=== PATIENT | female | born 1960 | race Caucasian/White ===

== ENCOUNTER 2021-01-19 13:35 | Outpatient (CLI) | payer MEDICARE, SELFPAY ==
--- NOTE | 2021-01-19 13:41 | MR_ITS ---
WS: [id number] MRI RIGHT HIP without CONTRAST. COMPARISON: None Multiplanar, multisequence imaging is performed without contrast. No fractures or marrow edema. Mild narrowing of the hip joints bilaterally. No osteochondral lesions are identified. No joint effusion or synovitis. Soft tissues are symmetric bilaterally. There is a small amount of free fluid in the pelvis. There is also a catheter coiled in the pelvis. T he free fluid is secondary to peritoneal dialysis. MR/MR hip RT wo con* [id number] IMPRESSION: 1. Mild narrowing of the hips. No osteonecrosis or fractures. 2. No joint effusions. 3. Free fluid in the pelvis is probably due to peritoneal dialysis. There is a catheter noted coiled in the pelvis on this examination.
--- NOTE | 2021-01-19 13:42 | MR_ITS ---
WS: [id number] MRI LUMBAR SPINE NONCONTRAST HISTORY: LOW BACK PAIN COMPARISON: 04/28/2010 TECHNIQUE: Sagittal and axial multisequence imaging is submitted. Postsurgical changes in the cervical spine. Mild thoracolumbar scoliosis with moderate spondylosis in the thoracic spine. Mild RIGHT curvature lumbar spine. Posterior fusion hardware extends from L3 to L5. There is moderate disc space narrowing at L3-4 and L4-5. No fracture or acute marrow edema. Benign hemangioma at L1. Stable L4 anterolisthesis by 4 mm. Conus terminates normally at L1. L1-L2: Diffuse asymmetric disc bulging. LEFT paracentral disc protrusion and/or osteophyte encroachin g upon the thecal sac. Mild LEFT subarticular recess narrowing. Similar protrusion on the prior study . . L2-L3: Diffuse annular disc bulging. Marked disc space narrowing and osteophytosis and facet arthriti s. Ligamentum flavum arthritis contributing to moderate central, bilateral subarticular recess and mi ld foraminal stenosis. Overall progression of stenosis since the prior study L3-L4: Diffuse annular disc bulging and osteophytic ridging. Posterior laminectomy defects with at le ast mild foraminal narrowing. L4-L5: Diffuse asymmetric disc bulging greatest to the LEFT. Bilateral laminectomy defects. Mild bila teral foraminal stenosis, LEFT greater than RIGHT. Increased soft tissue in the LEFT foramen could be scar tissue from the prior surgery. Cannot confirm without IV contrast. L5-S1: Mild annular disc bulging without significant stenosis. Liver is elongated which is probably a Maximus's lobe. There is a mass associated the superior LEFT ki dney measuring 2.7 cm. This mass is incompletely visualized. Moderate amount of free fluid in the pel vis needs to be further evaluated. MR/MR lumbar spine wo con* [id number] IMPRESSION: 1. Status post posterior lumbar fusion from L3 to L5. 2. Large posterior laminectomy defects at the L3-4 and L4-5 levels. 3. Development of moderate central, bilateral subarticular recess and mild nadege ateral foraminal stenosis at L2-3. 4. Mild LEFT subarticular recess narrowing at L1-2 and a LEFT paracentral disc protrusion which is unchanged. 5. Mild bilateral foraminal stenosis at L3-4 and L4-5. 6. LEFT renal mass measures 2.7 cm. Cannot confirm this is a cyst. A cyst has been previously described in the LEFT kidney. Needs to be further evaluated. 7. There is additional free fluid in the pelvis of uncertain etiology. 8. Recommend follow-up renal mass CT protocol. This protocol will evaluate the kidneys and also evaluate etiology of the free fluid in the pelvis.
== END 2021-01-19 13:36 | disposition home or self-care (01) ==
PROVIDERS: PCP Nurse Practitioner Family; Visit Provider Nurse Practitioner Family
DX: M25.551 Pain in right hip (principal); G89.29 Other chronic pain; M54.5 Low back pain; M43.26 Fusion of spine, lumbar region; M96.1 Postlaminectomy syndrome, not elsewhere classified; M48.061 Spinal stenosis, lumbar region without neurogenic claudication; N28.89 Other specified disorders of kidney and ureter
CPT/HCPCS: 72148; 73721

== ENCOUNTER → 2021-01-30 08:31 | Outpatient (BNVA) | payer MEDICARE, SELFPAY | PROVIDERS: PCP Nurse Practitioner Family; Referring Provider Nurse Practitioner Family; Visit Provider Anesthesiology Pain Medicine | DX: G89.29 Other chronic pain (principal); M54.9 Dorsalgia, unspecified; M51.16 Intervertebral disc disorders with radiculopathy, lumbar region; M47.816 Spondylosis without myelopathy or radiculopathy, lumbar region; M96.1 Postlaminectomy syndrome, not elsewhere classified; F17.210 Nicotine dependence, cigarettes, uncomplicated; Z79.899 Other long term (current) drug therapy | CPT/HCPCS: 99205 ==

== ENCOUNTER → 2021-02-06 13:38 | Outpatient (BNVA) | payer MEDICARE, SELFPAY | PROVIDERS: PCP Nurse Practitioner Family; Visit Provider Anesthesiology Pain Medicine | DX: Z01.812 Encounter for preprocedural laboratory examination (principal); G89.29 Other chronic pain; M54.16 Radiculopathy, lumbar region; E11.9 Type 2 diabetes mellitus without complications; M54.9 Dorsalgia, unspecified | CPT/HCPCS: 36416; 64483; 64484; 82962; J1100; J3490 ==

== ENCOUNTER 2021-02-25 10:34 | Outpatient (CLI) | payer MEDICARE, SELFPAY ==
--- NOTE | 2021-02-25 11:06 | CT_ITS ---
WS: [id number] CT ABDOMEN PELVIS TECHNIQUE: Noncontrast CT of the abdomen and pelvis with coronal and sagittal reformatted images. CLINICAL INFORMATION: LEFT RENAL CYST/MASS COMPARISON: CT abdomen 1 , MRI lumbar January 2021 DLP: 1132.[address] scans at [facility] use at least one of these dose optimization techniques: automat ed exposure control; mA and/or kV adjustment per patient size (includes targeted exams where dose is matched to clinical indication); or iterative reconstruction. FINDINGS: Comparison recent MRI February 06. Again seen is the left renal low-attenuation lesion measuring 2.5 x 3.1 CM with slight heterogeneity. Imaging characteristics most consistent with complex renal cyst. This appears unchanged since January 19, 2021. Prior renal ultrasound demonstrated a left renal cyst which may represent the same lesion. Recommend further evaluation with renal ultrasound. Bilateral renal cortical atrophy. Adrenal glands are normal. No hydronephrosis in either kidney. Per itoneal dialysis catheter. Hepatomegaly. Noncontrast liver otherwise appears normal. Cholecystectomy clips. Small esophageal hiatal hernia. Noncontrast spleen is normal. Lung bases are well aerated. Non contrast pancreas appears unremarkable. A few prominent lymph nodes in the upper abdomen similar to 2 008 likely reactive. Normal caliber abdominal aorta. Calcification. Normal sigmoid colon. No evidence of small or large bowel obstruction. Tiny fat-containing umbilical hernia. Postoperative changes pedicle screw fixation with interbody fusion L3-L5. Laminectomy defects . CT/CT kidney stone [id number] IMPRESSION: 1. Complex cyst upper pole left kidney measures 2.5 x 3.0 cm corresponds to le mayra seen on the lumbar spine MRI. Recommend further evaluation with renal ultr asound. 2. Bilateral renal cortical atrophy. No hydronephrosis. 3. Hepatomegaly. Cholecystectomy. 4. Small esophageal hiatal hernia. 5. No other significant findings.
== END 2021-02-25 10:35 | disposition home or self-care (01) ==
LOC: RADWPI 10:37
PROVIDERS: PCP Nurse Practitioner Family; Visit Provider Internal Medicine Nephrology
DX: G89.29 Other chronic pain (principal); N28.1 Cyst of kidney, acquired; M54.9 Dorsalgia, unspecified; N18.6 End stage renal disease; M51.16 Intervertebral disc disorders with radiculopathy, lumbar region; M47.816 Spondylosis without myelopathy or radiculopathy, lumbar region; M96.1 Postlaminectomy syndrome, not elsewhere classified; F17.210 Nicotine dependence, cigarettes, uncomplicated
CPT/HCPCS: 74176; 99213

== ENCOUNTER → 2021-03-20 09:19 | Outpatient (BNVA) | payer MEDICARE, SELFPAY | PROVIDERS: PCP Nurse Practitioner Family; Referring Provider Pediatrics; Visit Provider Urology | DX: N28.89 Other specified disorders of kidney and ureter (principal) | CPT/HCPCS: 81003 ==

== ENCOUNTER 2021-04-14 07:11 | Outpatient (CLI) | payer MEDICARE, SELFPAY ==
--- NOTE | 2021-04-14 08:00 | US_ITS ---
WS: [id number] ULTRASOUND RENAL TECHNIQUE: Ultrasound examination of both kidneys. CLINICAL INFORMATION: RENAL MASS COMPARISON: None. FINDINGS: Bilateral renal cortical atrophy RIGHT: Simple right renal cyst measuring 1.2 x 1.0 x 1.3 cm Right kidney Echogenicity: Normal. Hydronephrosis: None. Perinephric fluid: None. Right kidney measures: 9.3 cm x 4.4 cm x 4.6 cm. LEFT: Simple left renal cortical cyst measuring 3.5 x 2.8 x 2.8 cm Left kidney Echogenicity: Normal. Hydronephrosis: None. Perinephric fluid: None. Left kidney measures: 9.5 cm x 4.7 cm x 5.7 cm. Normal visualized aorta. Normal bladder. US/US renal BI* [id number] IMPRESSION: 1. No hydronephrosis in either kidney. Bilateral renal cortical atrophy 2. Left renal cyst has a simple appearance today ultrasound measuring 2.5 x 2. 8 x 2.8 cm. 3. Small simple right renal cyst measuring 1.2 x 1.0 x 1.3 cm
== END 2021-04-14 07:12 | disposition home or self-care (01) ==
PROVIDERS: PCP Nurse Practitioner Family; Visit Provider Urology
DX: N28.89 Other specified disorders of kidney and ureter (principal); N26.1 Atrophy of kidney (terminal); N28.1 Cyst of kidney, acquired
CPT/HCPCS: 76770; 81003

== ENCOUNTER → 2021-05-20 09:30 | Outpatient (BNVA) | payer MEDICARE, SELFPAY | PROVIDERS: PCP Nurse Practitioner Family; Visit Provider Anesthesiology Pain Medicine | DX: G89.29 Other chronic pain (principal); M51.16 Intervertebral disc disorders with radiculopathy, lumbar region; M47.816 Spondylosis without myelopathy or radiculopathy, lumbar region; M96.1 Postlaminectomy syndrome, not elsewhere classified; M79.604 Pain in right leg; M79.605 Pain in left leg; Z79.891 Long term (current) use of opiate analgesic | CPT/HCPCS: 99214 ==

== ENCOUNTER 2022-03-02 09:15 | Outpatient (CLI) | payer MEDICARE, SELFPAY ==
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
== END 2022-03-02 09:16 | disposition home or self-care (01) ==
LOC: RAD 09:19
PROVIDERS: PCP Nurse Practitioner Family; Visit Provider Nurse Practitioner Family
DX: M54.2 Cervicalgia (principal); V87.7XXA Person injured in collision between other specified motor vehicles (traffic), initial encounter
CPT/HCPCS: 72040; 73030

== ENCOUNTER → 2022-08-31 13:01 | Outpatient (BNVA) | payer MEDICARE, SELFPAY | PROVIDERS: PCP Nurse Practitioner Family; Visit Provider Surgery | DX: N18.9 Chronic kidney disease, unspecified (principal) | CPT/HCPCS: 99203; 99213 ==

== ENCOUNTER 2022-09-07 18:33 | Observation (INO) | payer MEDICARE, SELFPAY ==
[2022-09-06 12:06] VITALS: BMI 34.4
[2022-09-07] VITALS (13 sets, daily range): BP systolic 116–151; BP diastolic 52–81; PULSE 67–83; RESP 15–24; TEMP 36.2–37.3; O2SAT 90–100
[2022-09-07] MEDS: sodium chloride 0.9% 1,000 ML 30 ML IV (07:50)
[2022-09-07 07:52] LABS: Basophils # 0.1 10^3/uL (0.0-0.1); Basophils % 0.6 %; Eosinophils # 0.4 10^3/uL (0.0-0.8); Eosinophils % 4.1 %; Hematocrit 35.6 % (37.0-47.0); Hemoglobin 11.3 g/dL (11.5-15.3); Lymphocytes # 1.6 10^3/uL (0.8-4.8); Lymphocytes % 16.4 %; Mean Corpuscular HGB Conc 31.7 g/dL (30.0-36.0); Mean Corpuscular Hemoglobin 33.2 pg (28.0-34.0); Mean Corpuscular Volume 104.7 fl (81-99); Mean Platelet Volume 10.1 fL (7.4-10.4); Monocytes # 0.6 10^3/uL (0.2-0.9); Monocytes % 6.4 %; Neutrophils # 6.92 10^3/uL (1.8-7.7); Neutrophils % 70.9 %; Nucleated Red Blood Cells % 0 %; Platelet Count 267 10^3/cmm (130-400); Red Cell Distribution Width 13.7 % (12.1-15.1); White Blood Count 9.8 10^3/uL (4.0-10.0)
--- NOTE | 2022-09-07 08:03 | ANES.PREANE2 ---
Pre-Anesthetic Assessment Height/Weight: Height 1.57 m Weight 85.275 kg Temp Pulse Resp BP Pulse Ox O2 Del Method 97.8 F 78 18 145/81 96 09/07/22 07:48 09/07/22 07:48 09/07/22 07:48 09/07/22 07:48 09/07/22 07:48 09/07/22 07:48 Preop Diagnosis: End-stage renal disease Operation Date: 09/07/22 08:55 Proposed Procedures p PD cath removal 00714 Hemodiaysis cath palcement 65930 N18.9(Not Applicable) - Jaime Lipscomb MD s Dialysis Catheter Insertion(Not Applicable) - Jaime Lipscomb MD Familial anesthetic complications: none Was Beta Cecilia taken within 24 hours: Yes Was Clonidine taken within 24 hours: N/A Last intake: Intake Last Liquid Date 09/06/22 Last Liquid Time 18:00 Last Solid Date 09/06/22 Last Solid Time 18:00 Social Tobacco and No alcohol Exam alert, oriented x 3 and regular rate & rhythm Airway Submandibular: within normal limits Cervical ROM: within normal limits Mallampati: Class II Dentition: chipped and false (upper) Pulmonary Chronic Obstructive Pulmonary Disease CV/HEM Anemia and Hypertension Chronic Renal Failure GI Gastroesophageal Reflux Disease Metabolic Diabetes Mellitus and Morbid Obesity Musc/skel Lower Back Pain Neuropsych Cerebrovascular Accident Anesthetic Plan ASA status: 3 Anesthesia: General Medications/Allergies Home Medications Medication Instructions Recorded Confirmed Last Taken Type bumetanide 1 mg tablet 1 mg PO BID 02/20/20 09/06/22 09/06/22 06:00 History omega-3 fatty acids 1,000 mg 1,000 mg PO DAILY 02/20/20 09/06/22 09/06/22 History capsule (Fish Oil Concentrate) docusate sodium 100 mg capsule 100 mg PO DAILY 12/31/20 09/06/22 09/07/22 06:00 History gabapentin 300 mg capsule 300 mg PO DAILY 12/31/20 09/06/22 09/06/22 History metoprolol succinate 200 mg 200 mg PO DAILY 12/31/20 09/06/22 09/06/22 History tablet,extended release 24 hr ondansetron 4 mg disintegrating 4 mg PO Q8H PRN Nausea 12/31/20 09/07/22 04/27/22 History tablet pantoprazole 40 mg tablet,delayed 40 mg PO DAILY 12/31/20 09/06/22 09/07/22 06:00 History release sucroferric oxyhydroxide 500 mg 1,000 mg PO TID 12/31/20 09/06/22 09/06/22 History chewable tablet (Velphoro) venlafaxine 150 mg 150 mg PO DAILY 12/31/20 09/06/22 09/06/22 History capsule,extended release 24 hr vitamin B complex with vit C-folic 1 tab PO DAILY 12/31/20 09/06/22 09/06/22 History acid 800 mcg-zinc 12.5 mg tablet (RenaPlex) budesonide 160 mcg-glycopyr 9 2 inh inhalation BID #10.7 grams 11/24/21 09/06/22 09/07/22 06:00 Rx mcg-formot 4.8 mcg/actuation HFA inhaler (Breztri Aerosphere) doxazosin 4 mg tablet 4 mg PO BID 11/24/21 09/06/22 09/07/22 06:00 History trazodone 50 mg tablet See Rx Instructions .Route 08/02/22 09/06/22 09/06/22 Rx .COMPLEX #60 tabs amlodipine 10 mg tablet 10 mg PO DAILY 09/06/22 09/06/22 09/07/22 06:00 History fluconazole 100 mg tablet 100 mg PO DAILY 09/06/22 09/06/22 09/07/22 06:00 History fluticasone propionate 50 1 spray intranasal DAILY 09/06/22 09/06/22 09/07/22 06:00 History mcg/actuation nasal spray,suspension Allergies Allergy/AdvReac Type Severity Reaction Status Date / Time carisoprodol [From Soma] Allergy ALGY-Hives Verified 09/07/22 07:29 soap Allergy UNKNOWN Verified 09/07/22 07:29 Current Medications Generic Name Dose Route Start Last Admin Trade Name Freq PRN Reason Stop Dose Admin Sodium Chloride 1,000 mls @ 30 mls/hr 09/07/22 07:30 09/07/22 07:50 Sodium Chloride 0.9% IV 09/08/22 07:29 30 mls/hr .Q24H MAHI Administration PFSH Anesthesia Medical History CKD (chronic kidney disease) Family History Sister Lung disease Mother , IN HER 80'S Heart disease Father , IN HIS 80'S Heart disease Social History Smoking and tobacco status: current every day smoker cigarettes Packs smoked per day: 1 Years cigarettes smoked: 20 Quit status (tobacco): considering quitting Alcohol intake: never Marital status: Current occupational status: retired and disabled History of recent travel: No Data Anesthesia 09/07/22 07:41 09/07/22 07:41 Short CBC 09/07/22 Range/Units 07:41 WBC 9.8 (4.0-10.0) 10^3/uL Hgb 11.3 L (11.5-15.3) g/dL Hct 35.6 L (37.0-47.0) % MCV 104.7 H (81-99) fl Plt Count 267 (130-400) 10^3/cmm Neut % (Auto) 70.9 % Neut # (Auto) 6.92 (1.8-7.7) 10^3/uL Cardiac Studies: No Data to Display
--- NOTE | 2022-09-07 08:05 | W.PM.OPSUD ---
Surgery/Procedure H&P Update DATE OF PROCEDURE: September 07, 2022 DATE H&P PERFORMED: 08/31/22 H&P UPDATE INFORMATION: I have reviewed H&P completed within last 30 days, I have examined patient prior to procedure and No changes to prior documentation PREOP DIAGNOSIS: End-stage renal disease PRIMARY INDICATION FOR PROCEDURE: The same PLANNED PROCEDURE: Operation Date: 09/07/22 08:55 Proposed Procedures p PD cath removal 10687 Hemodiaysis cath palcement 05871 N18.9(Not Applicable) - Jaime Lipscomb MD s Dialysis Catheter Insertion(Not Applicable) - Jaime Lipscomb MD
[2022-09-07 08:07] LABS: Anion Gap 15.7 (5-19); Blood Urea Nitrogen 75 mg/dL (8-23); Calcium 8.9 mg/dL (8.5-10.5); Carbon Dioxide 21 mmol/L (22-29); Chloride 110 mmol/L (98-107); Glomerular Filtration Rate 5.5 mL/min (90-130); Glucose 104 mg/dL (65-115); Osmolality Calculated 313 mOsm/kg (285-295); Sodium 140 mmol/L (136-145)
[2022-09-07 08:12] LABS: Potassium 6.7 mmol/L (3.5-5.1)
[2022-09-07] MEDS: insulin regular-human 100 units/1 mL 10 UNIT IVP (08:35)
[2022-09-07 09:37] LABS: Potassium 6.3 mmol/L (3.5-5.1)
[2022-09-07] MEDS: ampicillin-sulbactam 3 GM in sodium chloride 0.9% (plus) 50 ML IV (10:32)
--- NOTE | 2022-09-07 10:43 | SC_ITS ---
WS: [id number] C-ARM RADIOGRAPHS CHEST; 2 IMAGES HISTORY: surgery COMPARISON: None available. Intraoperative imaging during RIGHT dialysis catheter placement. Tips project over the mid to distal SVC. SC/C-arm FL for CVA [id number] IMPRESSION: Intraoperative imaging during dialysis catheter placement.
[2022-09-07] MEDS: heparin, porcine 1,000 unit/mL INJ 10 mL 10000 UNIT INJECTION (11:07)
[2022-09-07] MEDS: lidocaine 2% INJ 20 mL INJECTION (11:07)
[2022-09-07] MEDS: neomycin-poly-bacitracin oint 28 gm 1 APPLIC TOPICAL (11:44)
--- NOTE | 2022-09-07 12:13 | P.OP_ITS ---
Operative Report Date of procedure: September 07, 2022 Pre-op diagnosis: Preop Diagnosis End-stage renal disease Procedure done: 1. Placement of 16 [place] 32 cm long AshSplit tunneled hemodialysis catheter right internal jugular vein 2. Fluoroscopic guidance and interpretation for placement of catheter 3. Ultrasound guidance to access the right internal jugular vein 4. Removal of peritoneal dialysis catheter Surgeon: Jaime Lipscomb MD Actuarial Mathematician: Arielle Lowe Circulating nurse Pattie Anesthesia: General (director apparel Jayda) Estimated blood loss (mL): 10 Procedure: Patient was identified in the holding area and taken to the operative room and placed in supine position ,both arms were tucked,Time-out was done verifying the patient's name/date of /planned procedure and destination after the procedure, all were in agreement.SCDs confirmed to be functioning, LMA was placed by anesthesia ,patient was given prophylactic antibiotics administered per protocol, and beta ondina protocol was confirmed, appropriate positioning of the patient was done by me the nursing staff. Medications were reviewed to assess for anticoagulant usage. Risks and benefits and prevention of central line associated blood stream infection (CLABSI) were discussed with the patient/CPOA, and a consent was obtained. Monitors were in place and monitored throughout the procedure. All necessary supplies were available prior to start. Hand hygiene was completed prior to starting. Maximum barrier technique was utilized including a sterile gown, sterile gloves with a hat and mask. Site was was prepped with [chlorhexidine] and a full body drape was placed. 5 mL of 2% lidocaine was injected into the skin with a 25 gauge needle. Prep& drape was done under the usual sterile technique of upper chest and the abdomen right and left as well as the neck both sides, lidocaine 2% was injected at the site of the stick, started by right internal jugular vein under ultrasound guidance was no evidence of intraluminal thrombosis and I was able to retrieve venous blood from the first stick. Guidewire was then passed without difficulty all the way to the IVC under the guidance of fluoroscopy position was confirmed to be in the IVC, there was no PVC changes, at that point the guidewire was secured to the drapes with a hemostat and the needle was taken out, attention was then deviated towards creation of an insert for the HD catheter at the right upper chest, were lidocaine 2% was injected using an 11 blade knife skin incision was created dissection using a hemostat to create an entrance and for the HD catheter to be inserted were it was connected to a tunneler, and the tunneler was used to accommodate the catheter of the HD catheter to be delivered through the incision first created at the site of the stick ,which is at the right side of the neck, a small matheus was created with 11 blade knife to allow delivery of the catheter outside the wound ,at that point under fluoroscopy,serial dilators were done that come in the in the KIT, followed by that a dilator with the sheath introduced onto the guidewire ,the dilator and the wire were retrieved and the catheter of the port was introduced via the sheath where it was peeled off and the catheter maintained, to be in good position in the right atrium. There was a small kink appreciated and a special wire was used under fluoroscopic guidance to unkink and it was successful. Both ports were flushed with diluted heparin and appropriate blood was retrieved first, Hep-Lock's were then applied. The whole procedure was done under fluoroscopy,the position maintained to be in the rt atrium that was confirmed with fluoroscopy, and the fluoroscopy interpretation was done by me throughout the entire procedure. The stick site was closed by 3-0 Vicryl deep subdermal interrupted sutures, followed by 2-0 nylon was used followed by dry dressing was applied to secure the hemodialysis catheter onto the anterior chest wall. Triple antibiotic was then applied followed by dry dressing. Patient tolerated that part of the procedure very well Count was correct at the end of the procedure Placement of a HemoSplit hemodialysis catheter 16 [place] Citizen,32 cm arterial side Attention now was deviated towards the removal of the PD catheter Lidocaine 2% was injected at the site of the incision, after palpation of the site of the catheter towards the right side of the abdomen where a counter skin incision was created and dissection further to the subcutaneous layer was done and exteriorization of the catheter was achieved after taking all adhesions down, tip of the catheter was sent for cultures and sensitivities. Copious and thorough irrigation was done to both incisions and was closed with 2-0 and 3-0 Vicryl followed by skin anika and dry dressing. Patient tolerated the procedure well and was taken to recovery area in stable condition I was present for the whole entire procedure
--- NOTE | 2022-09-07 12:39 | SUR.PHASEI ---
1220 PT TO PACU 5 AWAKES TO VOICE, PT CONFUSED AND REPOSITIONES SELF IN BED, MONOITR SR WITH NO ECTOPY NOTED VSS IV TO LT WRIST #20 WITH NS 200 ML AT KVO RATE PER GRAVITY, ID BRACELET TO LT WRIST PT ID'D WITH 2 IDENTIFIERS, GOOD RESP EFFORT NOTED SAT S QUICKLY UP TO 92% WITH 8L MASK, BILAT SCDS ON , HOB AT 30 DEGREES RT SUBCLAVIAN SITES WITH DIALYSIS CATHETER PLACE, 2 SITES TO ABDOMEN WITH OPSITE D/I FROM PERITONEAL CATHETER REMOVAL. LAB CALLED FOR K LEVEL PER DR CASEY. 1245 ORDERS IN AND LAB CONTACTED X 2 FOR BLOOD DRAW IN PACU PT AWAKE ALERT ON RA TRIAL, VSS DRESSINGS X2 SITES D/I 1250 STILL WAITING FOR LAB TO ARRIVE, PT MORE ALERT SATS 90% ON RA , PT PLACED ON 3LNC SATS NOW 92% PT ON RT SIDE SLEEPS IF NOT DISTURBED.
[2022-09-07 12:43] LABS: Glucose Point of Care 119 mg/dL (70-110)
--- NOTE | 2022-09-07 12:58 | SUR.PHASEI ---
LAB AT BEDSIDE PT AWAKE ALERT TALKATIVE, REQUESTS WATER TO SIP ON , PT TO OPS PER CART , WILL HOLD PT UNTIL RESULTS OF K LEVEL CALLED TO DR CASEY,
[2022-09-07] MEDS: HYDROcodone-acetaminophen 5-325 mg Tablet 1 TAB PO ×2 (13:22→23:10)
--- NOTE | 2022-09-07 13:56 | SUR.PHASEII ---
PATIENT TO BE ADMITTED DUE TO ELEVATED POTASSIUM LEVEL
--- NOTE | 2022-09-07 14:43 | ANE.PACU2 ---
Inpatient post-anesthesia follow up: Airway intact: Yes Vital signs: Temperature 97.7 F Pulse Rate 67 Respiratory Rate 18 Blood Pressure 116/81 Pulse Oximetry 93 Oxygen Delivery Me thod Room Air Oxygen Flow Rate 2 Fraction of Inspir ed Oxygen Hydration adequate: Yes Nausea and vomiting: No Pain level: 2 Mental status: Baseline
[2022-09-07 14:51] LABS: Anion Gap 16.2 (5-19); Blood Urea Nitrogen 75 mg/dL (8-23); Calcium 8.7 mg/dL (8.5-10.5); Carbon Dioxide 20 mmol/L (22-29); Chloride 109 mmol/L (98-107); Glomerular Filtration Rate 5.8 mL/min (90-130); Glucose 146 mg/dL (65-115); Osmolality Calculated 311 mOsm/kg (285-295); Sodium 138 mmol/L (136-145)
[2022-09-07 14:53] LABS: Potassium 7.2 mmol/L (3.5-5.1)
--- NOTE | 2022-09-07 15:47 | PM.CONSULT ---
Providers/Reason For Consult Consulting Physician/Specialty*: reggie hwang md / telenephrology Reason for Consult*: hyperkalemia/ ESRD care Requesting Physician: DR Macedo Attending Physician: Jaime Lipscomb MD Primary Care Provider: Latasha Ku NP History of Present Illness History of Present Illness Lela Payan is a 61 year old female - ESRD on PD for 4 yrs. stopped 2 weeks ago due to fungal peritonitis and malfunctioning PD catheter. She is s/p PD catheter removal and Per amelia sandhu this am. renal called as pt needs dialysis. c/o nausea, weak, poor appetite, itching. no sob, no cp, + abd distention, no larose. +metallic taste Review of Systems Narrative: as above. + urinates Medications/Allergies Home Medications Medication Instructions Recorded Confirmed Last Taken Type bumetanide 1 mg tablet 1 mg PO BID 02/20/20 09/06/22 09/06/22 06:00 History omega-3 fatty acids 1,000 mg 1,000 mg PO DAILY 02/20/20 09/06/22 09/06/22 History capsule (Fish Oil Concentrate) docusate sodium 100 mg capsule 100 mg PO DAILY 12/31/20 09/06/22 09/07/22 06:00 History gabapentin 300 mg capsule 300 mg PO DAILY 12/31/20 09/06/22 09/06/22 History metoprolol succinate 200 mg 200 mg PO DAILY 12/31/20 09/06/22 09/06/22 History tablet,extended release 24 hr ondansetron 4 mg disintegrating 4 mg PO Q8H PRN Nausea 12/31/20 09/07/22 04/27/22 History tablet pantoprazole 40 mg tablet,delayed 40 mg PO DAILY 12/31/20 09/06/22 09/07/22 06:00 History release sucroferric oxyhydroxide 500 mg 1,000 mg PO TID 12/31/20 09/06/22 09/06/22 History chewable tablet (Velphoro) venlafaxine 150 mg 150 mg PO DAILY 12/31/20 09/06/22 09/06/22 History capsule,extended release 24 hr vitamin B complex with vit C-folic 1 tab PO DAILY 12/31/20 09/06/22 09/06/22 History acid 800 mcg-zinc 12.5 mg tablet (RenaPlex) budesonide 160 mcg-glycopyr 9 2 inh inhalation BID #10.7 grams 11/24/21 09/06/22 09/07/22 06:00 Rx mcg-formot 4.8 mcg/actuation HFA inhaler (Breztri Aerosphere) doxazosin 4 mg tablet 4 mg PO BID 11/24/21 09/06/22 09/07/22 06:00 History trazodone 50 mg tablet See Rx Instructions .Route 08/02/22 09/06/22 09/06/22 Rx .COMPLEX #60 tabs amlodipine 10 mg tablet 10 mg PO DAILY 09/06/22 09/06/22 09/07/22 06:00 History fluconazole 100 mg tablet 100 mg PO DAILY 09/06/22 09/06/22 09/07/22 06:00 History fluticasone propionate 50 1 spray intranasal DAILY 09/06/22 09/06/22 09/07/22 06:00 History mcg/actuation nasal spray,suspension hydrocodone 5 mg-acetaminophen 325 1 tab PO Q6H PRN pain #28 tabs 09/07/22 Unknown Rx mg tablet Allergies Allergy/AdvReac Type Severity Reaction Status Date / Time carisoprodol [From Soma] Allergy ALGY-Hives Verified 09/07/22 07:29 soap Allergy UNKNOWN Verified 09/07/22 07:29 Current Medications Generic Name Dose Route Start Last Admin Trade Name Freq PRN Reason Stop Dose Admin Sodium Chloride 1,000 mls @ 30 mls/hr 09/07/22 07:30 09/07/22 07:50 Sodium Chloride 0.9% IV 09/08/22 07:29 30 mls/hr .Q24H MAHI Administration PFSH Acute PFSH: Medical History CKD (chronic kidney disease) Family History Sister Lung disease Mother , IN HER 80'S Heart disease Father , IN HIS 80'S Heart disease Social History Smoking and tobacco status: current every day smoker cigarettes Packs smoked per day: 1 Years cigarettes smoked: 20 Quit status (tobacco): considering quitting Alcohol intake: never Marital status: Current occupational status: retired and disabled History of recent travel: No Vitals/I&O/Wt Last Vital Signs Temp 97.7 F 09/07/22 13:11 Pulse 67 09/07/22 13:26 Resp 18 09/07/22 13:26 BP 116/81 09/07/22 13:26 Pulse Ox 93 09/07/22 13:26 O2 Del Method 09/07/22 13:26 O2 Flow Rate 2 09/07/22 13:02 09/07/22 09/07/22 09/07/22 06:59 14:59 22:59 Intake Total 100 / 100 Output Total Balance 80 / 80 Weight last 48 hrs Weight 85.275 kg Weight 85.275 kg Physical Exam Narrative: NARD vss heent- nc/at neck supple lungs clear heart reg abd soft, distended, tender, + bs, surgical scar ext no edema neuro a,a, o x 3 Data 09/07/22 07:41 09/07/22 14:16 Micro: Microbiology 09/07/22 11:50 Gram Stain - Final Abdomen A&P Assessment and plan (1) ESRD (end stage renal disease) on dialysis: 62 yr old female CKD stage 5/ ESRD on PD for 4 yrs. here as fungal peritonitis and needed PD catheter removed. she now has a permacath and hyperkalemia 1. fungal peritonitis- PD catheter removed. anti-fungals per ID/ medicine 2. ESRD- no dialysis for 2 weeks- restart gently today and tomorrow 3. BP low- can hold anti-htn meds 4. DM control per medicine discussed w/ Dr Kaba seen and examined w/ DR Kaba- telehealth visit pt gives informed consent for telehealth and dialysis time spent 45 min Plan as above Consult Attestations Medical Necessity Statement: hyperkalemia Time Spent in Patient Care: Greater than 35 minutes (>than 50% of time spent in counselling and/or direct pt care on unit). Coding Level of Care Code Acute Electric Blasting Cap Assembler for Chg Fwd Diagnoses ESRD (end stage renal disease) on dialysis N18.6; Z99.2
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
--- NOTE | 2022-09-07 16:31 | PC.NURSE ---
at 1530 REPORT RECEIVED FROM ANY GREEN AND CARE TURNED OVER TO ME. DR CASEY AND DR LEDEZMA NOTIFIED OF POTASSIUM LEVEL. VIDIO CONFRENCE DONE WITH PT, DR FUNG, MYSELF AND CONSULTING ACCESS MANAGER. DIALYSIS NURSE, DESTINI IS PREPARING FOR PT AND WILL NOTIFY ME WHEN READY. PT HAS EATEN DINNER AND VOIDED. REPORT CALLED TO [facility], ON SECOND FLOOR WHERE PT WILL GO TO ROOM 264 AFTER DIALYSIS.
--- NOTE | 2022-09-07 16:55 | PC.NURSE ---
PT TRANSPORTED TO DIALYSIS ROOM VIA STRETCHER REPORT GIVEN TO DESTINI AND CARE TURNED OVER.
--- NOTE | 2022-09-07 20:16 | PC.NURSE ---
Patient arrived on the med/surg unit at this time.
--- NOTE | 2022-09-07 21:52 | ECG_ITS ---
[facility] Test Date: 2022-09-07 Pat Name: Lela Payan Department: Room: 264 Gender: Female Disabilities Caregiver: : 1960 Requested By: Adelina Macedo Order Number: [id number] Jesús MD: Lux Cota M.D. Measurements Intervals [place] Rate: 75 P: 25 TX: 157 QRS: -6 QRSD: 97 T: 43 QT: 384 QTc: 429 Interpretive Statements SINUS RHYTHM LOW QRS VOLTAGE IN PRECORDIAL LEADS [QRS DEFLECTION < 1.0 mV IN CHEST LEADS] Compared to ECG 12/20/2018 20:46:43 Low QRS voltage now present Electronically Signed On 09-08-2022 9:54:32 ANIMAL HANDLER by Lux Cota M.D. [id number]
[2022-09-07 21:59] LABS: Glucose Point of Care 128 mg/dL (70-110)
[2022-09-07 22:09] LABS: Hepatitis B Surface AB 133.8 (11.5-1000); Hepatitis B Surface Antigen Non-Reactive (Nonreactive); Hepatitis C Virus Antibody Reactive (Nonreactive)
[2022-09-07 22:20] LABS: Calcium 8.6 mg/dL (8.5-10.5)
[2022-09-08] VITALS (9 sets, daily range): BP systolic 127–152; BP diastolic 49–68; PULSE 65–80; RESP 17–19; TEMP 36.6–36.8; O2SAT 90–96
[2022-09-08] MEDS: trazodone 50 mg Tablet PO (00:05)
[2022-09-08] MEDS: bumetanide 1 mg Tablet PO ×2 (00:05→09:43)
[2022-09-08] MEDS: docusate sodium 100 mg Capsule PO ×2 (00:05→09:43)
[2022-09-08 00:27] LABS: Glucose Point of Care 107 mg/dL (70-110)
[2022-09-08 00:54] LABS: Parathyroid Hormone 225.4 pg/mL (15-65)
[2022-09-08 04:02] LABS: Alanine Aminotransferase 8 U/L (0-33); Alkaline Phosphatase 56 U/L (35-105); Anion Gap 13.9 (5-19); Aspartate Amino Transferase 17 U/L (0-32); Blood Urea Nitrogen 42 mg/dL (8-23); Calcium 8.5 mg/dL (8.5-10.5); Carbon Dioxide 25 mmol/L (22-29); Chloride 105 mmol/L (98-107); Globulin 2.6 g/dL (1.3-4.6); Glomerular Filtration Rate 8.6 mL/min (90-130); Glucose 113 mg/dL (65-115); Magnesium 2.4 mg/dL (1.7-2.3); Osmolality Calculated 297 mOsm/kg (285-295); Phosphorus 4.2 mg/dL (2.5-4.5); Potassium 5.9 mmol/L (3.5-5.1); Sodium 138 mmol/L (136-145); Total Bilirubin 0.2 mg/dL (0.15-1.2); Total Protein 5.6 g/dL (6.6-8.7)
[2022-09-08 05:55] LABS: Estmated Average Glucose 103; Hemoglobin A1C 5.2 % (4.0-6.0)
--- NOTE | 2022-09-08 06:13 | P.PN_ITS ---
Subjective Subjective: Patient feels a whole lot better potassium is down to 5.9 and serum creatinine is down to 5.1, patient had dialysis yesterday and the dialysis catheter is working well and patient tolerated it fine. Passing gas and had bowel movements in addition to her appropriate tolerance to p.o. intake. Medications: Reviewed: Yes Vitals/I&O/Wt Last Vital Signs Temp 97.9 F 09/08/22 04:00 Pulse 73 09/08/22 04:00 Resp 19 H 09/08/22 04:00 BP 143/58 09/08/22 04:00 Pulse Ox 90 09/08/22 04:00 O2 Del Method 09/08/22 04:00 O2 Flow Rate 2 09/07/22 13:02 09/07/22 09/07/22 09/08/22 14:59 22:59 06:59 Intake Total 100 / 100 840 / 940 Output Total Balance 80 / 80 840 / 920 Weight last 48 hrs Weight 182 lb 7 oz Weight 188 lb Weight 188 lb Physical Exam Narrative: Patient is conscious alert oriented X3 No apparent distress BMI 33.4 Head and neck examination PERRLA no masses no cervical lymphadenopathy no jaundice HD catheter in place without complication Abdomen nontender nondistended soft no organomegaly guarding or rigidity/no signs of peritonitis Dressing in place Data 09/07/22 07:41 09/08/22 02:49 Micro: Microbiology 09/07/22 11:50 Gram Stain - Final Abdomen A&P Assessment and plan (1) CKD (chronic kidney disease): From surgical standpoint of view once patient is appropriate from nephrology and hospitalist service. Can be discharged home and follow-up with nephrology team as an outpatient. Recommend ice packs towards the right side of the neck. Assurance and education All questions have been answered and all concerns have been addressed to patient's satisfaction. Attestations Medical Necessity Statement*: Observation status with the plan another hemodialysis session today. Coding Level of Care Code Acute Automotive Consultant for Chg Fwd Diagnoses CKD (chronic kidney disease) N18.9
[2022-09-08] MEDS: HYDROcodone-acetaminophen 5-325 mg Tablet 1 TAB PO (06:30)
--- NOTE | 2022-09-08 06:50 | P.PN_ITS ---
Subjective Subjective: feels better. wants to have dialysis and go home. no n/v/f/c/larose/d. Medications: Reviewed: Yes Medication Review Details: Current Medications Hydrocodone Bitart/Acetaminophen (Hydrocodone-Acetaminophen 5-325 Mg Tablet) 1 tab PO Q6H PRN PRN Reason: MODERATE PAIN Last Admin: 09/08/22 06:30 Dose: 1 tab Albuterol Sulfate (Albuterol 2.5 Mg/3 Ml Neb) 2.5 mg INHALATION Q6H.RESP PRN PRN Reason: SHORTNESS OF BREATH Bumetanide (Bumetanide 1 Mg Tablet) 1 mg PO BID [facility] Last Admin: 09/08/22 00:05 Dose: 1 mg Docusate Sodium (Docusate Sodium 100 Mg Capsule) 100 mg PO BID [facility] Last Admin: 09/08/22 00:05 Dose: 100 mg Docusate Sodium (Docusate Sodium 100 Mg Capsule) 100 mg PO DAILY [facility] Fluconazole (Fluconazole 100 Mg Tablet) 100 mg PO DAILY [facility] Fluticasone Propionate (Fluticasone Nasal [place] 16gm Btl) 1 spray INTRANASAL DAILY [facility] Gabapentin (Gabapentin 300 Mg Capsule) 300 mg PO DAILY [facility] Glucagon (Glucagon 1 Mg/Ml Inj 1 Ml) 1 mg IM ONCE PRN; Protocol PRN Reason: Adult Acute Hypoglycemia Prot. Heparin Sodium (Porcine) (Heparin 5,000 Unit/Ml Inj 1 Ml) 5,000 unit SUBCUT Q12H [facility] Dextrose (D5w) 500 mls @ 100 mls/hr IV ONCE PRN; Protocol PRN Reason: Adult Acute Hypoglycemia Prot Insulin Human Lispro (Insulin Lispro 100 Unit/1 Ml) 0 unit SUBCUT BEDTIME MAHI; Protocol Last Admin: 09/08/22 00:26 Dose: Not Given Insulin Human Lispro (Insulin Lispro 100 Unit/1 Ml) 0 unit SUBCUT TIDWM [facility]; Protocol Last Admin: 09/08/22 00:06 Dose: Not Given Metoprolol Succinate (Metoprolol Succinate Er (24 Hr) 100 Mg Tablet) 200 mg PO DAILY [facility] Morphine Sulfate (Morphine 4 Mg/Ml Sdv 1 Ml) 2 mg IVP Q4H PRN PRN Reason: SEVERE PAIN Nicotine (Nicotine 21 Mg Patch) 1 patch TRANSDERMA DAILY PRN PRN Reason: nicotine withdrawl Non-Formulary Medication (Sucroferric Oxyhydroxide [Velphoro]) 1,000 mg PO TID [facility] Last Admin: 09/07/22 23:50 Dose: Not Given Non-Formulary Medication (Vit B Qnnhbrl-U-Zubwu Ac-Zinc [Renaplex]) 1 tab PO DAILY [facility] Yezip-6-[id number] Ethyl Esters ([place]-3 Fatty Acids 1,000 Mg Capsule) 1,000 mg PO DAILY [facility] Ondansetron HCl (Ondansetron 2 Mg/Ml Sdv 2 Ml) 4 mg IVP Q4H PRN PRN Reason: NAUSEA AND VOMITING Pantoprazole Sodium (Pantoprazole Dr 40 Mg Tablet) 40 mg PO DAILY [facility] Trazodone HCl (Trazodone 50 Mg Tablet) 50 mg PO BEDTIME [facility] Last Admin: 09/08/22 00:05 Dose: 50 mg Venlafaxine HCl (Venlafaxine Er (24hr) 150 Mg Capsule) 150 mg PO DAILY [facility] Vitals/I&O/Wt Last Vital Signs Temp 97.9 F 09/08/22 04:00 Pulse 73 09/08/22 04:00 Resp 19 H 09/08/22 04:00 BP 143/58 09/08/22 04:00 Pulse Ox 90 09/08/22 04:00 O2 Del Method 09/08/22 04:00 O2 Flow Rate 2 09/07/22 13:02 09/07/22 09/07/22 09/08/22 14:59 22:59 06:59 Intake Total 100 / 100 840 / 940 Output Total Balance 80 / 80 840 / 920 Weight last 48 hrs Weight 82.752 kg Weight 85.275 kg Weight 85.275 kg Physical Exam Narrative: NARD vss heent- nc/at neck supple. + ACW permacath lungs clear heart reg abd soft, less distended, iess tender, + bs, surgical scar ext no edema neuro a,a, o x 3 Data 09/07/22 07:41 09/08/22 02:49 Micro: Microbiology 09/07/22 11:50 Gram Stain - Final Abdomen A&P Assessment and plan (1) ESRD (end stage renal disease) on dialysis: 62 yr old female CKD stage 5/ ESRD on PD for 4 yrs. here as fungal peritonitis and needed PD catheter removed. she now has a permacath and hyperkalemia 1. fungal peritonitis- PD catheter removed. anti-fungals per ID/ medicine 2. ESRD- did not have dialysis for 2 weeks- -feels better after HD last night. rpeeta hd today 2.5 hrs, 2k, remove 1.5 l -has outpt HD set up for Tuesday09/10/22 -hyperkalemia improving w/ dialysis 3. BP stable- limit meds 4. DM control per medicine 5. hep C AB+ she states she is s/p treatment- please follow viral load- have pt see GI/ID as outpt 6. hgb okay for eSRD 7. pth 225- calcitriol or zemplar at dialysis discussed w/ Dr Lipscomb seen and examined w/ RN- telehealth visit pt gives informed consent for telehealth and dialysis time spent 30 min Plan as above Attestations Medical Necessity Statement*: esrd, hyperkalemia- change to HD Time Spent in Patient Care: 16 - 35 minutes (>than 50% of time spent in counselling and/or direct pt care on unit) . Coding Level of Care Code Acute Supervisor [employer] for Jacinto Meade Diagnoses ESRD (end stage renal disease) on dialysis N18.6; Z99.2
[2022-09-08 06:54] LABS: Glucose Point of Care 89 mg/dL (70-110)
[2022-09-08] MEDS: fluconazole 100 mg Tablet PO (09:43)
[2022-09-08] MEDS: omega-3 fatty acids 1,000 mg Capsule 1000 MG PO (09:43)
[2022-09-08] MEDS: venlafaxine ER (24HR) 150 mg Capsule PO (09:43)
[2022-09-08] MEDS: pantoprazole DR 40 mg Tablet PO (09:44)
[2022-09-08] MEDS: gabapentin 300 mg Capsule PO (09:44)
[2022-09-08] MEDS: heparin 5,000 unit/mL INJ 1 mL 5000 UNIT SUBCUT (09:44)
[2022-09-08] MEDS: metoprolol succinate ER (24 HR) 100 mg Tablet 200 MG PO (09:44)
--- NOTE | 2022-09-08 10:37 | PM.PN ---
Subjective Subjective: Patient seen in hemodialysis. She feels significantly better today. Pain controlled. No new complaints. Per her, cultures grew mold and yeast. The marble chip terrazzo worker has called in a different antibiotic [antifungal I presume] . Vitals/I&O/Wt Last Vital Signs Temp 98.2 F 09/08/22 07:22 Pulse 74 09/08/22 08:15 Resp 18 09/08/22 08:15 BP 138/66 09/08/22 07:22 Pulse Ox 96 09/08/22 08:15 O2 Del Method 09/08/22 08:15 O2 Flow Rate 2 09/07/22 13:02 09/07/22 09/08/22 09/08/22 22:59 06:59 14:59 Intake Total 840 / 940 120 / 120 Output Total 1150 / 1150 Balance 840 / 920 -1030 / -1030 Weight last 48 hrs Weight 82.752 kg Weight 85.275 kg Weight 85.275 kg Physical Exam Narrative: Alert and oriented, looks much less acutely ill appearing than yesterday. Dialysis catheter intact, no oozing of blood noted. Able to talk in more full sentences and taking deeper breathes without same degree of shortness of breath (which was not as apparent yesterday) Data 09/07/22 07:41 09/08/22 02:49 Other Labs: Laboratory Tests 09/07/22 09/07/22 09/08/22 12:30 21:56 00:19 POC Glucose 119 H 128 H 107 09/08/22 06:51 POC Glucose 89 Laboratory Last Values WBC 9.8 10^3/uL (4.0-10.0) 09/07/22 07:41 RBC 3.40 10^6/uL (4.1-5.3) L 09/07/22 07:41 Hgb 11.3 g/dL (11.5-15.3) L 09/07/22 07:41 Hct 35.6 % (37.0-47.0) L 09/07/22 07:41 MCV 104.7 fl (81-99) H 09/07/22 07:41 MCH 33.2 pg (28.0-34.0) 09/07/22 07:41 MCHC 31.7 g/dL (30.0-36.0) 09/07/22 07:41 RDW 13.7 % (12.1-15.1) 09/07/22 07:41 Plt Count 267 10^3/cmm (130-400) 09/07/22 07:41 MPV 10.1 fL (7.4-10.4) 09/07/22 07:41 Neut % (Auto) 70.9 % 09/07/22 07:41 Lymph % (Auto) 16.4 % 09/07/22 07:41 [place] % (Auto) 6.4 % 09/07/22 07:41 Eos % (Auto) 4.1 % 09/07/22 07:41 Baso % (Auto) 0.6 % 09/07/22 07:41 Neut # (Auto) 6.92 10^3/uL (1.8-7.7) 09/07/22 07:41 Lymph # (Auto) 1.6 10^3/uL (0.8-4.8) 09/07/22 07:41 [place] # (Auto) 0.6 10^3/uL (0.2-0.9) 09/07/22 07:41 Eos # (Auto) 0.4 10^3/uL (0.0-0.8) 09/07/22 07:41 Baso # (Auto) 0.1 10^3/uL (0.0-0.1) 09/07/22 07:41 Nucleated RBC % (auto) 0 % 09/07/22 07:41 Nucleated RBCs # 0.0 /100WBC 09/07/22 07:41 Sodium 138 mmol/L (136-145) 09/08/22 02:49 Potassium 5.9 mmol/L (3.5-5.1) H 09/08/22 02:49 Chloride 105 mmol/L (98-107) 09/08/22 02:49 Carbon Dioxide 25 mmol/L (22-29) 09/08/22 02:49 Anion Gap 13.9 (5-19) 09/08/22 02:49 BUN 42 mg/dL (8-23) H 09/08/22 02:49 Creatinine 5.1 mg/dL (0.5-0.9) H 09/08/22 02:49 GFR Calculation 8.6 mL/min (90-130) L 09/08/22 02:49 Glucose 113 mg/dL (65-115) 09/08/22 02:49 Estimat Average Glucose 103 09/08/22 02:49 Hemoglobin A1c 5.2 % (4.0-6.0) 09/08/22 02:49 Calculated Osmolality 297 mOsm/kg (285-295) H 09/08/22 02:49 Calcium 8.5 mg/dL (8.5-10.5) 09/08/22 02:49 Phosphorus 4.2 mg/dL (2.5-4.5) 09/08/22 02:49 Magnesium 2.4 mg/dL (1.7-2.3) H 09/08/22 02:49 Total Bilirubin 0.2 mg/dL (0.15-1.2) 09/08/22 02:49 AST 17 U/L (0-32) 09/08/22 02:49 ALT 8 U/L (0-33) 09/08/22 02:49 Alkaline Phosphatase 56 U/L (35-105) 09/08/22 02:49 Total Protein 5.6 g/dL (6.6-8.7) L 09/08/22 02:49 Albumin 3.0 g/dL (3.5-5.2) L 09/08/22 02:49 Globulin 2.6 g/dL (1.3-4.6) 09/08/22 02:49 PTH Intact 225.4 pg/mL (15-65) H 09/07/22 21:07 Calcium (PTH Intact) 8.6 mg/dL (8.5-10.5) 09/07/22 21:07 Hep Bs Antigen Non-reactive (Nonreactive) 09/07/22 21:07 Hep Bs Antibody 133.8 (11.5-1000) 09/07/22 21:07 Hepatitis C Antibody Reactive (Nonreactive) H 09/07/22 21:07 Laboratory Tests 09/07/22 22:27 HCV RNA (PCR) IUs/ml Pending HCV RNA (PCR) IU log10 Pending Micro: Microbiology 09/07/22 11:50 Gram Stain - Final Abdomen EKG 1: I personally reviewed and interpreted this EKG as follows: My Interpretation: Sinus rhythm 75, no t wave or st segment changes A&P Assessment and plan (1) Hyperkalemia: Secondary to no dialysis for ~2 weeks in a known ESRD patient Improved after hemodialysis (2) Infection associated with peritoneal dialysis catheter: Fungal infection/peritonitis identified and managed by outpatient nephrology prior to admission and outpatient surgery referral, being treated with oral fluconazole 100 mg p.o. daily Remains on fluconazole (3) Peritoneal dialysis catheter fitting or adjustment: s/p removal 09/07/[address] Lipscomb today, line sent for cultures Culture pending as noted above (4) S/P hemodialysis catheter insertion: Tunnelled catheter placed 09/07/[address] Lipscomb and ready to use Line intact, no issues during hemodialysis (5) ESRD (end stage renal disease) on dialysis: Set up by outpatient nephrology originally to begin hemodialysis tomorrow outpatient through [facility] Set up for outpatient HD to start 09/10/2022 (6) Dependence on renal dialysis: Has been on peritoneal dialysis for 4 years and plan is to return to PD after appropriate treatment for fungal peritonitis. Will be on hemodialysis in the interim. No change (7) Hypertension: Primary hypertension Chronically on metoprolol, amlodipine, bumetanide and doxazosin Blood pressures currently within normal range Blood pressures reviewed Had amlodipine and doxazosin yesterday Nephrology recommends limiting blood pressure medications (8) Diet-controlled diabetes mellitus: Not on any pharmacological treatment Current blood sugar 146 Repeat blood sugars today okay, A1c 5.2 (9) COPD (chronic obstructive pulmonary disease): Chronically on budesonide/glycopyrrolate/formoterol inhaler and also uses fluticasone nasal for allergies Chronic, not currently exacerbated No issues (10) Anemia in chronic kidney disease: Dialysis patient, with macrocytosis, appears to be at baseline hemoglobin level No change (11) Chronic back pain: Chronically on gabapentin and hydrocodone Stable (12) Anxiety: Chronically on venlafaxine Stable (13) History of hepatitis C: Diagnosis added to problem list Hep C positive on testing performed Reports prior treatment Viral load ordered per nephrology (14) BMI 34.0-34.9,adult: Plan Chronically on 3 fatty acids for history of hypertriglyceridemia Chronically on PPI for history of reflux symptoms Chronically on trazodone for sleep Nicotine dependence with cigarettes From hospitalist perspective, okay for discharge after hemodialysis today Next hemodialysis tuesday09/10/22 Continue treatment for fungal infection as per outpatient nephrology instructions - currently fluconazole but may have been changed per patient Outpatient nephrology and/or Dr Lipscomb will need to follow-up peritoneal dialysis catheter cultures (reference number noted above) Continue home metoprolol succinate and bumetanide; keep blood pressure long and discuss with nephrology when or if to resume doxazosin and amlodipine Continue other home medications and a renal diabetic diet Dressing management as per surgery Recommend follow up with primary care provider and nephrology, in addition to surgery Plans discussed with patient and she was given an opportunity to ask questions She was encouraged to quit smoking DC tab updated Attestations Medical Necessity Statement*: Anticipate DC home today after hemodialysis Coding Level of Care Code Acute Painter [employer]brush for Chg Fwd Diagnoses Hyperkalemia E87.5 Infection associated with peritoneal dialysis catheter T85.71XA Peritoneal dialysis catheter fitting or adjustment Z49.02 S/P hemodialysis catheter insertion Z99.2 ESRD (end stage renal disease) on dialysis N18.6; Z99.2 Dependence on renal dialysis Z99.2 Hypertension I10 Diet-controlled diabetes mellitus E11.9 COPD (chronic obstructive pulmonary disease) J44.9 Anemia in chronic kidney disease N18.9; D63.1 Chronic back pain M54.9; G89.29 Anxiety F41.9 History of hepatitis C Z86.19 BMI 34.0-34.9,adult Z68.34
[2022-09-08 11:05] LABS: Glucose Point of Care 152 mg/dL (70-110)
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
--- NOTE | 2022-09-08 12:53 | PC.CHAP ---
Pastoral Care Encounter/Spiritual Assessment Type of Contact [] Declined recovery rn visit [] Patient/Family/Request visit [] Outpatient visit [] Follow-up visit [] Physician referral [] Code/Alert [x] Routine visit [] Staff referral [] Actively dying [] Patient sleeping [] Family support [] [] Out of room [] Palliative care [] [] Receiving care in room [] Pre-surgical visit [] Trauma [] Long length of stay [] ICU visit [] Other: Relational/Emotional Strength [x] Patient feels connected with others/family/visitors/staff [] Distress [] Loneliness/isolation [] Abandonment Spirituality of Patient [x] Person of Brittani [] Attends Protestant of their Brittani [x] Believes in Prayer [] Reads Bible or Mormon materials [] There are Spiritual issues to be addressed Lead Technical Writer Interventions [x] Prayer [x] Active listening [x] Non-anxious presence [x] Spiritual/emotional support [] Crisis/trauma care [] Spiritual counseling [] Bereavement support [] Provided bereavement packet [] Provided Bible/devotional materials [] Provided toy/stuffed animal, coloring book to patient or family member [] Provided Communion [] Anointing/[place] [] Salvation [x] Completed spiritual assessment [] Other: Impact on Illness or Injury [] Angry [] Fearful [] Anxious [] Often cries [] Exhaustion [] Unable to work [] Unable to attend hoahaoism [] Unable to walk/stand [] Unable to read [] Unable to drive [] Unable to eat/drink [] Unable to sleep [] Unable to be with family [] Patient intubated [] Other: Summary Time spent with patient 10 mijn
[2022-09-08] MEDS: heparin, porcine 1,000 unit/mL INJ 10 mL 1 UNIT HE (14:55)
[2022-09-10 02:41] LABS: HEP C RNA Viral Load Quant <1.18 NOT DETECTED Log IU/mL (NOT DETECTED); HEP C RNA Viral Load Quant <15 NOT DETECTED IU/mL (NOT DETECTED)
== END 2022-09-08 15:30 | disposition home or self-care (01) ==
LOC: MEDSURG 18:34
PROVIDERS: Anesthesiology; Internal Medicine Nephrology; Admitting Provider Surgery; PCP Nurse Practitioner Family; Visit Provider Hospitalist
PROC: (CPT 49422; principal; 2022-09-07 08:45)
PROC: (CPT 36561; 2022-09-07 08:45)
DX: E87.5 Hyperkalemia (principal); T85.71XA Infection and inflammatory reaction due to peritoneal dialysis catheter, initial encounter; Y83.8 Other surgical procedures as the cause of abnormal reaction of the patient, or of later complication, without mention of misadventure at the time of the procedure; E11.22 Type 2 diabetes mellitus with diabetic chronic kidney disease; I12.0 Hypertensive chronic kidney disease with stage 5 chronic kidney disease or end stage renal disease; N18.6 End stage renal disease; Z99.2 Dependence on renal dialysis; J44.9 Chronic obstructive pulmonary disease, unspecified; D63.1 Anemia in chronic kidney disease; M54.9 Dorsalgia, unspecified; G89.29 Other chronic pain; F41.9 Anxiety disorder, unspecified; Z68.34 Body mass index [BMI] 34.0-34.9, adult; Z86.19 Personal history of other infectious and parasitic diseases; F17.210 Nicotine dependence, cigarettes, uncomplicated
CPT/HCPCS: 36561; 49422; 36415; 36416; 77001; 80048; 80053; 82310; 82962; 83036; 83735; 83970; 84100; 84132; 85025; 86706; 86803; 87070; 87075; 87205; 87340; 87522; 90935; 93005; 96372; G0378; J0295; J1100; J1644; J1815; J2405; J2704; J3010; J7030; Q3014

== ENCOUNTER → 2022-09-14 10:49 | Outpatient (BNVA) | payer MEDICARE, SELFPAY | PROVIDERS: PCP Nurse Practitioner Family; Visit Provider Surgery | DX: Z09 Encounter for follow-up examination after completed treatment for conditions other than malignant neoplasm (principal) | CPT/HCPCS: 99024 ==

== ENCOUNTER → 2023-10-21 11:03 | Outpatient (BNVA) | payer MEDICARE, SELFPAY | PROVIDERS: PCP Nurse Practitioner Family; Visit Provider Nurse Practitioner Family | DX: J02.9 Acute pharyngitis, unspecified (principal) | CPT/HCPCS: 87400; 87426; 87880 ==

== ENCOUNTER 2024-02-27 09:49 | Oncology outpatient (recurring) (ONCR) | payer MEDICARE, SELFPAY ==
[2024-02-27 11:44] LABS: Basophils # 0.1 10^3/uL (0.0-0.1); Basophils % 0.7 %; Eosinophils # 0.3 10^3/uL (0.0-0.8); Eosinophils % 2.1 %; Hematocrit 37.9 % (36-47); Lymphocytes # 2.9 10^3/uL (0.8-4.8); Lymphocytes % 23.1 %; Mean Corpuscular HGB Conc 33.2 g/dL (30-55); Mean Corpuscular Hemoglobin 35.1 pg (27-33); Mean Corpuscular Volume 105.6 fl (85-98); Mean Platelet Volume 9.9 fL (7.4-10.4); Monocytes # 0.6 10^3/uL (0.2-0.9); Monocytes % 4.8 %; Neutrophils # 8.58 10^3/uL (1.8-7.7); Neutrophils % 67.8 %; Nucleated Red Blood Cells % 0 %; Platelet Count 207 10^3/cmm (157-399); Red Blood Count 3.59 10^6/uL (3.85-5.65); Red Cell Distribution Width 13.8 % (12.1-15.1); White Blood Count 12.66 10^3/uL (3.29-11.43)
[2024-02-27 12:04] LABS: Alanine Aminotransferase 11 U/L (0-33); Albumin Level 3.6 g/dL (3.5-5.2); Alkaline Phosphatase 53 U/L (35-105); Anion Gap 17.8 (5-19); Aspartate Amino Transferase 12 U/L (0-32); C Reactive Protein 7.3 mg/L (0.0-4.9); Calcium 8.7 mg/dL (8.5-10.5); Carbon Dioxide 26 mmol/L (22-29); Chloride 93 mmol/L (98-107); Globulin 2.7 g/dL (1.3-4.6); Glucose 89 mg/dL (65-115); Iron 79 ug/dL (37-145); Osmolality Calculated 298 mOsm/kg (285-295); Percent Saturation 45.1 % (20-50); Potassium 4.8 mmol/L (3.5-5.1); Sodium 132 mmol/L (136-145); Total Bilirubin 0.2 mg/dL (0.15-1.2); Total Iron Binding Capacity 175 mcg/dl; Total Protein 6.3 g/dL (6.6-8.7); Unsaturated Iron Binding 96 ug/dL (112-347)
[2024-02-27 12:08] LABS: Erythrocyte Sedimentation Rate 38 mm/hr (0-15)
[2024-02-27 12:10] LABS: Blood Urea Nitrogen 82 mg/dL (8-23); Creatinine Clr Calc Pharmacy 5.4805
[2024-02-27 12:16] LABS: Ferritin 1571 ng/mL (15-150)
[2024-02-27 14:58] LABS: LAB Peripheral Smear Sent for Review
[2024-02-27 17:28] LABS: Vitamin B12 672 pg/mL (232-1245)
== END 2024-03-18 23:59 | disposition home or self-care (01) ==
PROVIDERS: PCP Nurse Practitioner Family; Visit Provider Internal Medicine Medical Oncology
DX: N18.9 Chronic kidney disease, unspecified (principal); R79.89 Other specified abnormal findings of blood chemistry; D72.829 Elevated white blood cell count, unspecified
CPT/HCPCS: 36415; 80053; 81256; 82607; 82728; 83540; 83550; 85025; 85651; 86140; 99204

== ENCOUNTER 2024-07-09 12:25 | Oncology outpatient (recurring) (ONCR) | payer MEDICARE, SELFPAY ==
[2024-07-09 12:53] LABS: Basophils # 0.1 10^3/uL (0.0-0.1); Basophils % 0.6 %; Eosinophils # 0.2 10^3/uL (0.0-0.8); Eosinophils % 1.6 %; Hematocrit 38.7 % (36-47); Lymphocytes # 2.8 10^3/uL (0.8-4.8); Lymphocytes % 24.6 %; Mean Corpuscular HGB Conc 32.6 g/dL (30-55); Mean Corpuscular Volume 104.3 fl (85-98); Mean Platelet Volume 10.2 fL (7.4-10.4); Monocytes # 0.6 10^3/uL (0.2-0.9); Monocytes % 5.3 %; Neutrophils # 7.64 10^3/uL (1.8-7.7); Nucleated Red Blood Cells % 0 %; Platelet Count 195 10^3/cmm (157-399); Red Blood Count 3.71 10^6/uL (3.85-5.65); Red Cell Distribution Width 13.9 % (12.1-15.1); White Blood Count 11.39 10^3/uL (3.29-11.43)
[2024-07-09 13:16] LABS: Alanine Aminotransferase 11 U/L (0-33); Albumin Level 3.3 g/dL (3.5-5.2); Alkaline Phosphatase 60 U/L (35-105); Anion Gap 12.6 (5-19); Aspartate Amino Transferase 11 U/L (0-32); Blood Urea Nitrogen 67 mg/dL (8-23); C Reactive Protein 8.7 mg/L (0.0-4.9); Calcium 8.3 mg/dL (8.5-10.5); Carbon Dioxide 25 mmol/L (22-29); Chloride 100 mmol/L (98-107); Creatinine Clr Calc Pharmacy 5.9386; Globulin 2.6 g/dL (1.3-4.6); Glomerular Filtration Rate 4.5 mL/min (90-130); Glucose 97 mg/dL (65-115); Osmolality Calculated 295 mOsm/kg (285-295); Potassium 4.6 mmol/L (3.5-5.1); Sodium 133 mmol/L (136-145); Total Bilirubin 0.2 mg/dL (0.15-1.2); Total Protein 5.9 g/dL (6.6-8.7)
[2024-07-09 13:26] LABS: Erythrocyte Sedimentation Rate 27 mm/hr (0-15)
== END 2024-07-19 23:59 | disposition home or self-care (01) ==
PROVIDERS: PCP Nurse Practitioner Family; Visit Provider Internal Medicine Medical Oncology
DX: D72.829 Elevated white blood cell count, unspecified (principal); R79.89 Other specified abnormal findings of blood chemistry
CPT/HCPCS: 36415; 80053; 85025; 85651; 86140

== ENCOUNTER → 2025-03-29 11:08 | Outpatient (BNVA) | payer MEDICARE, SELFPAY | PROVIDERS: PCP Nurse Practitioner Family; Visit Provider Nurse Practitioner Family | DX: F17.218 Nicotine dependence, cigarettes, with other nicotine-induced disorders (principal); R63.4 Abnormal weight loss | CPT/HCPCS: 71046 ==

== ENCOUNTER 2025-04-06 07:46 | Emergency (ER) | payer MEDICARE, SELFPAY ==
[2025-04-06] VITALS (20 sets, daily range): BP systolic 100–162; BP diastolic 64–90; PULSE 108–118; RESP 16–33; TEMP 36.4; O2SAT 85–100; BMI 22.8
--- OUTSIDE RECORDS SUMMARY | 2025-04-06 07:53 | XMS_ITS | Encounter Summary ---
Author Organization [facility] [employer] [employer] Address [address] [place] [address] Phone Care Team Providers Care Desktop Analyst Name Role Phone Jere Calderon MD Primary Care Provider [phone] Reason for Visit * Reason Comments Med Refill Encounter Details Date Type Department Care Team (Late st Contact Info) Description 12/27/2019 Refill [facility] [address] [place] [address] Bruce Guido MD Social History Tobacco Use Types Packs/Day Years Used Date Smoking Tobacco: Every Day Cigarettes Last attempted to quit: 09/19/2016 Smokeless Tobacco: Never Alcohol Use Standard Drinks/Week Comments Never 0 (1 standard drink = 0.6 oz pur e alcohol) AUDIT-C Answer Date Recorded Frequency of Alcohol Consumption Never 12/26/2018 Average Number of Drinks Not on file 019 Frequency of Binge Drinking Not on file 05/2019 Comments Unknown Sex and Gender Information Value Date Recorded Sex Assigned at Not on file Legal Sex Female 12:45 PM EST Gender Identity Not on file Sexual Orientation Not on file documented as of this encounter Plan of Treatment Not on file documented as of this encounter Visit Diagnoses Not on filedocumented in this encounter Care Teams Desktop Analyst Relationship Specialty Start Date End Date Jere Calderon MD [address] [facility] [address] [place] [address] PCP - General Family Medicine 12/26/18 documented as of this encounter
--- OUTSIDE RECORDS SUMMARY | 2025-04-06 07:53 | XMS_ITS | Encounter Summary ---
Author Organization [facility] [employer] Address [address] [place] [address] Phone Care Team Providers Care Oral Pathologist Name Role Phone Jere Calderon MD Primary Care Provider [phone] Reason for Visit * Reason Comments Med Refill Encounter Details Date Type Department Care Team (Late st Contact Info) Description 12/21/2021 Refill [facility] [employer] [address] [place] [address] Bruce Guido MD Social History Tobacco Use [...] on filedocumented in this encounter Care Teams Oral Pathologist Relationship Specialty Start Date End Date Jere Calderon MD [address] [facility] [address] [place] [address] PCP - General Family Medicine 12/26/18 documented as of this encounter
--- OUTSIDE RECORDS SUMMARY | 2025-04-06 07:53 | XMS_ITS | Encounter Summary ---
Author Organization [facility] [employer] Address [address] [place] [address] Phone Care Team Providers Care Pin Drafter Name Role Phone Jere Calderon MD Primary Care Provider [phone] Encounter Details Date Type Department Care Team (Late st Contact Info) Description 01/23/2019 Orders Only [facility] [address] [place] [address] Bruce Guido MD Chronic kidney disease stage 3 Social History Tobacco Use Types Packs/Day Years [...] on file documented as of this encounter Procedures Procedure Name Priority Date/Time Associated Diagnosis Comments PROTEIN / CREATININE RATIO, URINE Routine 03/19/2019 9:12 AM CDT Chronic kidney disease stage 3 PTH, INTACT Routine 03/19/2019 9:12 AM CDT Chronic kidney disease stage 3 documented in this encounter Results * Protein / creatinine ratio, urine (03/19/2019 9:12 AM CDT) Creatinine, Urine Random 57 mg/dL Urine Protein/Creatin ine Ratio 446 mg/g creat Urine specimen (specimen) Urine specimen obtained by clean catch procedure / Unknown 03/19/2019 9:12 AM CDT María Lee MA - 03/19/2019 9:12 AM CDT [facility] [address] [place], [place] [address] Bruce Guido MD LAB URINE ORDERABLES Fi nal Result * PTH, intact (03/19/2019 9:12 AM CDT) Parathyroid Hormone, Intact 102.8 pg/mL Blood specimen (specimen) Venous blood / Unknown 03/19/2019 9:12 AM CDT María Lee MA - 03/19/2019 9:12 AM CDT [facility] [address] [place] [id number] Bruce Guido MD LAB BLOOD ORDERABLES Fi nal Result documented in this encounter Visit Diagnoses Diagnosis Chronic kidney disease stage 3 (HCC) documented in this encounter Care Teams Pin Drafter Relationship Specialty Start Date End Date Jere Calderon MD [address] [facility] [address] [place] [address] PCP - General Family Medicine 12/26/18 documented as of this encounter
--- OUTSIDE RECORDS SUMMARY | 2025-04-06 07:53 | XMS_ITS | Encounter Summary ---
Author Organization [place] [employer] [employer] Address [address] [place] [address] Phone Care Team Providers Care House Carpenter Name Role Phone Jere Calderon MD Primary Care Provider [phone] Reason for Visit * Reason Comments Med Refill Encounter Details Date Type Department Care Team (Late st Contact Info) Description 08/22/2020 Refill [facility] [address] [place] [address] Bruce Guido MD Social History [...] on filedocumented in this encounter Care Teams House Carpenter Relationship Specialty Start Date End Date Jere Calderon MD [address] [facility] [address] [place] [address] PCP - General Family Medicine 12/26/18 documented as of this encounter
--- OUTSIDE RECORDS SUMMARY | 2025-04-06 07:53 | XMS_ITS | Encounter Summary ---
Author Organization [place] [employer] [facility] Address [address] [facility] [address] [place] [address] Phone Care Team Providers Care Processing Clerk Name Role Phone Jere Calderon MD Primary Care Provider [phone] Reason for Visit * Reason Comments Med Refill Encounter Details Date Type Department Care Team (Late st Contact Info) Description 10/22/2019 Refill Feliberto [employer] [employer] [address] [place] [address] Bruce Guido MD Social History [...] on filedocumented in this encounter Care Teams Processing Clerk Relationship Specialty Start Date End Date Jere Calderon MD [address] [facility] [address] [place] [address] PCP - General Family Medicine 12/26/18 documented as of this encounter
--- OUTSIDE RECORDS SUMMARY | 2025-04-06 07:53 | XMS_ITS | Encounter Summary ---
Author Organization [place] [facility] [employer] [employer] Address [address] [place] [address] Phone Care Team Providers Care Welfare Adviser Name Role Phone Jere Calderon MD Primary Care Provider [phone] Reason for Visit * Reason Comments Med Refill Encounter Details Date Type Department Care Team (Late st Contact Info) Description 11/21/2021 Refill Feliberto [facility] [employer] [address] [place] [address] Bruce Guido MD Social History [...] on filedocumented in this encounter Care Teams Welfare Adviser Relationship Specialty Start Date End Date Jere Calderon MD [address] [facility] [address] [place] [address] PCP - General Family Medicine 12/26/18 documented as of this encounter
--- OUTSIDE RECORDS SUMMARY | 2025-04-06 07:53 | XMS_ITS | Encounter Summary ---
Author Organization [place] [facility] [employer] [employer] Address [address] [facility] [address] [place] [address] Phone Care Team Providers Care Stereo Equipment Installer Name Role Phone Jere Calderon MD Primary Care Provider [phone] Reason for Visit * Reason Comments Med Refill Encounter Details Date Type Department Care Team (Late st Contact Info) Description 01/07/2020 Refill Feliberto [facility] [address] [place] [address] Bruce Guido MD Social History [...] on filedocumented in this encounter Care Teams Stereo Equipment Installer Relationship Specialty Start Date End Date Jere Calderon MD [address] [facility] [address] [place] [address] PCP - General Family Medicine 12/26/18 documented as of this encounter
--- OUTSIDE RECORDS SUMMARY | 2025-04-06 07:53 | XMS_ITS | Encounter Summary ---
Author Organization [place] [employer] Address [address] [place] [address] Phone Care Team Providers Care Heavy Duty Mechanic Farm Equipment Name Role Phone Jere Calderon MD Primary Care Provider [phone] Reason for Visit * Reason Comments Med Refill Encounter Details Date Type Department Care Team (Late st Contact Info) Description 08/15/2020 Refill Feliberto [employer] [employer] [address] [place] [address] Bruce Guido MD Social History [...] on filedocumented in this encounter Care Teams Heavy Duty Mechanic Farm Equipment Relationship Specialty Start Date End Date Jere Calderon MD [address] [facility] [address] [place] [address] PCP - General Family Medicine 12/26/18 documented as of this encounter
--- OUTSIDE RECORDS SUMMARY | 2025-04-06 07:53 | XMS_ITS | Encounter Summary ---
Author Organization [place] [facility] [employer] [employer] Address [address] [facility] [place] [address] Phone Care Team Providers Care Foster Care Therapist Name Role Phone Jere Calderon MD Primary Care Provider [phone] Reason for Visit * Reason Comments Med Refill Encounter Details Date Type Department Care Team (Late st Contact Info) Description 06/09/2022 Refill Feliberto [facility] [employer] [employer] [address] [place] [address] Bruce Guido MD Social History [...] on filedocumented in this encounter Care Teams Foster Care Therapist Relationship Specialty Start Date End Date Jere Calderon MD [address] [facility] [address] [place] [address] PCP - General Family Medicine 12/26/18 documented as of this encounter
--- OUTSIDE RECORDS SUMMARY | 2025-04-06 07:53 | XMS_ITS | Encounter Summary ---
Author Organization [employer] Address [address] [place] [address] Phone Care Team Providers Care Jig Operator Name Role Phone Jere Calderon MD Primary Care Provider [phone] Encounter Details Date Type Department Care Team (Late st Contact Info) Description 01/09/2019 Orders Only [facility] [employer] [employer] [address] [place] [address] Bruce Guido MD Chronic kidney [...] on file documented as of this encounter Progress Notes * Timo Marshall, PERSONNEL WORKER - 01/09/2019 11:59 PM CDT Please call patient. How is she feeling? Her renal function has continued to decline. Did she stop ACEi and NSAIDs as instructed at last visit? Does she have s/s of uremia. Did she ever have TOPS education. I do not see any documentation of this. If she is uremic she needs to go to [place]. Is she urinating ok and emptying her bladder? I see that she did not have renal US after last visit as ordered. Timo Llamas documented in this encounter Plan of Treatment Not on file documented as of this encounter Procedures Procedure Name Priority Date/Time Associated Diagnosis Comments RENAL FUNCTION PANEL Routine 03/19/2019 9:12 AM CDT Chronic kidney disease stage 3 documented in this encounter Results * (ABNORMAL) Renal function panel (03/19/2019 9:12 AM CDT) Albumin 4.3 3.5 - 5.0 g/dL BUN 67(A) 4 - 21 mg/dL Calcium 8.8 8.7 - 10.7 mg/dL Chloride 103 99 - 108 Bicarbonate (CO2) 18(A) 22 - 30 mmol/L Creatinine 5.90(A) 0.50 - 1.10 mg/dL eGFR 9.0 mL/min/1.7 3m*2 eGFR Non- 7.0 mL/min/1.7 3m*2 Glucose 143 Phosphorus, Serum 5.5 Potassium 5.2 3.4 - 5.5 Sodium 141 137 - 147 Blood specimen (specimen) Venous blood / Unknown 03/19/2019 9:12 AM CDT Narrative María Rogers MA - 03/19/2019 9:12 AM CDT [facility] [address] [place] [address] us Bruce Guido MD LAB BLOOD ORDERABLES Fi nal Result documented in this encounter Visit Diagnoses Diagnosis Chronic kidney disease stage 3 (HCC) documented in this encounter Care Teams Jig Operator Relationship Specialty Start Date End Date Jere Calderon MD [address] [place] [address] PCP - General Family Medicine 12/26/18 documented as of this encounter
--- OUTSIDE RECORDS SUMMARY | 2025-04-06 07:53 | XMS_ITS | Encounter Summary ---
Author Organization [employer] [facility] [employer] [email or web address] Address [address] [place] [address] Phone Care Team Providers Care Clinical Business Analyst Name Role Phone Jere Calderon MD Primary Care Provider [phone] Encounter Details Date Type Department Care Team (Late st Contact Info) Description 12/22/2018 Orders Only [facility], [facility] [address] [place] [address] María Rogers MA [address] [place] [address] Stage 5 chronic kidney disease (HCC) Social History Tobacco Use Types Packs/Day Years Used Date Smoking Tobacco: Former Cigarettes Q uit: 09/19/2016 AUDIT-C Answer Date Recorded Frequency of Alcohol [...] Procedure Name Priority Date/Time Associated Diagnosis Comments URINALYSIS Routine 12/22/2018 Stage 5 chronic kidney disease (HCC) documented in this encounter Results * Urinalysis (12/22/2018) Color, Urine Yellow Appearance Clear Glucose, Urine Norm Bilirubin, Urine Neg Ketones, Urine Neg Blood, Urine 2+ PH Urine 5.5 Protein, Ur >300 Urobilinogen, Urine 0.2 Nitrite, Urine Neg Urine Leukocytes Neg Specific [place] 1.020 Urine specimen (specimen) Urine specimen obtained by clean catch procedure / Unknown 12/22/2018 Narrative Mandi Leung MA - 12/26/2018 9:38 AM CDT As Ordered lab [facility] [address] [place] [id number] Timo Marshall GUEST REQUEST RUNNER LAB URINE ORDERABLES Final Result documented in this encounter Visit Diagnoses Diagnosis Stage 5 chronic kidney disease (HCC) documented in this encounter Care Teams Clinical Business Analyst Relationship Specialty Start Date End Date Jere Calderon MD [address] [place] [address] PCP - General Family Medicine 12/26/18 documented as of this encounter
--- OUTSIDE RECORDS SUMMARY | 2025-04-06 07:54 | XMS_ITS | Encounter Summary ---
Author Organization [facility] Address [address] [place] [address] Care Team Providers Care Drug Abuse Counselor Name Role Phone Maricarmen Meeks NP Primary Care Provider [phone] Encounter Details Date Type Department Care Team (Latest Contact Info) Description 10/23/2001 Outpatient Historical HIS [facility] Raghu Solano MD [address] [place] [address] Chondromalacia patellae (Primary Dx) Social History Tobacco Use Types Packs/Day Years Used Date Smoking Tobacco: Never Assessed Comments Unknown Sex and Gender Information Value Date Recorded Sex Assigned at Not on file Legal Sex Female 4:39 AM TAX AGENT Gender Identity Not on file Sexual Orientation Not on file documented as of this encounter Plan of Treatment Not on file documented as of this encounter Visit Diagnoses Diagnosis Chondromalacia patellae- Primary Chondromalacia of patella documented in this encounter Care Teams Drug Abuse Counselor Relationship Specialty Start Date End Date Maricarmen Meeks NP [address] [place] [address] PCP - General NURSE PRACTITIONER 01/27/17 documented as of this encounter
--- OUTSIDE RECORDS SUMMARY | 2025-04-06 07:54 | XMS_ITS | Encounter Summary ---
Author Organization [facility] Address [address] [facility] [address]: [place] [address] Care Team Providers Care Typer Name Role Phone Maricarmen Meeks SUPERINTENDENT CONCRETE MIXING PLANT Primary Care Provider [phone] Encounter Details Date Type Department Care Team (Late st Contact Info) Description 09/26/2001 Outpatient Historical Raghu Solano MD [address] [place] [address] Social History Tobacco Use Types Packs/Day Years Used Date Smoking Tobacco: Never Assessed Comments Unknown Sex and Gender Information Value Date Recorded Sex Assigned at Not on file Legal Sex Female 4:39 AM TREE MARKER Gender Identity Not on file Sexual Orientation Not on file documented as of this encounter Plan of Treatment Not on file documented as of this encounter Visit Diagnoses Not on filedocumented in this encounter Care Teams Typer Relationship Specialty Start Date End Date Maricarmen Meeks NP [address] [place], [place] [address] PCP - General NURSE PRACTITIONER 01/27/17 documented as of this encounter
--- OUTSIDE RECORDS SUMMARY | 2025-04-06 07:54 | XMS_ITS | Encounter Summary ---
Author Organization [place] [facility] [employer] [employer] Address [address] [facility] [facility] [address] [place] [address] Phone Care Team Providers Care Plane Captain Name Role Phone Jere Calderon MD Primary Care Provider [phone] Reason for Visit * Reason Comments Med Refill Encounter Details Date Type Department Care Team (Late st Contact Info) Description 03/30/2021 Refill Feliberto [facility] [employer] [address] [place] [address] Bruce Guido MD Social History [...] on filedocumented in this encounter Care Teams Plane Captain Relationship Specialty Start Date End Date Jere Calderon MD [address] [facility] [address] [place] [address] PCP - General Family Medicine 12/26/18 documented as of this encounter
--- OUTSIDE RECORDS SUMMARY | 2025-04-06 07:54 | XMS_ITS | Encounter Summary ---
Author Organization [facility] Address [address] [place] [address] Care Team Providers Care Gate Supervisor Name Role Phone Maricarmen Meeks NP Primary Care Provider [phone] Encounter Details Date Type Department Care Team (Latest Contact Info) Description 08/24/2001 Outpatient Historical [facility] Raghu Solano MD [address] [place] [address] DERANG POST MED MENISCUS (Primary Dx) Social History Tobacco Use Types Packs/Day Years Used Date Smoking Tobacco: Never Assessed Comments Unknown Sex and Gender Information Value Date Recorded Sex Assigned at Not on file Legal Sex Female 4:39 AM APPLICATION LEAD Gender Identity Not on file Sexual Orientation Not on file documented as of this encounter Plan of Treatment Not on file documented as of this encounter Visit Diagnoses Diagnosis Derangement of posterior horn of medial meniscus- Primary documented in this encounter Care Teams Gate Supervisor Relationship Specialty Start Date End Date Maricarmen Meeks NP [address] [place] [address] PCP - General NURSE PRACTITIONER 01/27/17 documented as of this encounter
--- OUTSIDE RECORDS SUMMARY | 2025-04-06 07:54 | XMS_ITS | Encounter Summary ---
Author Organization [place] [facility] [employer] [employer] Address [address] [facility] [address] [place] [address] Phone Care Team Providers Care Compliance Field Technician Name Role Phone Jere Calderon MD Primary Care Provider [phone] Reason for Visit * Reason Comments Med Refill Encounter Details Date Type Department Care Team (Late st Contact Info) Description 12/12/2020 Refill Feliberto [facility] [employer] [address] [place] [address] Bruce Guido MD Social History [...] on filedocumented in this encounter Care Teams Compliance Field Technician Relationship Specialty Start Date End Date Jere Calderon MD [address] [facility] [address] [place] [address] PCP - General Family Medicine 12/26/18 documented as of this encounter
--- OUTSIDE RECORDS SUMMARY | 2025-04-06 07:54 | XMS_ITS | Encounter Summary ---
Author Organization [place] [facility] [employer] Address [address] [facility] [address] [place] [address] Phone Care Team Providers Care Set Rider Name Role Phone Jere Calderon MD Primary Care Provider [phone] Reason for Visit * Reason Comments Med Refill Encounter Details Date Type Department Care Team (Late st Contact Info) Description 11/04/2020 Refill Feliberto [facility] [employer] [employer] [address] [place] [address] Bruce Guido MD Social History [...] on filedocumented in this encounter Care Teams Set Rider Relationship Specialty Start Date End Date Jere Calderon MD [address] [facility] [address] [place] [address] PCP - General Family Medicine 12/26/18 documented as of this encounter
--- OUTSIDE RECORDS SUMMARY | 2025-04-06 07:54 | XMS_ITS | Encounter Summary ---
Author Organization [employer] Address [address] [facility] [place] [address] Phone Care Team Providers Care Manufacturing Management Associate Name Role Phone Jere Calderon MD Primary Care Provider [phone] Reason for Visit * Reason Comments Med Refill Encounter Details Date Type Department Care Team (Late st Contact Info) Description 03/05/2020 Refill Feliberto [employer] [employer] [address] [place] [address] Bruce Guido MD Social History [...] on filedocumented in this encounter Care Teams Manufacturing Management Associate Relationship Specialty Start Date End Date Jere Calderon MD [address] [facility] [address] [place] [address] PCP - General Family Medicine 12/26/18 documented as of this encounter
--- OUTSIDE RECORDS SUMMARY | 2025-04-06 07:54 | XMS_ITS | Encounter Summary ---
Author Organization [place] [employer] [employer] Address [address] [place] [address] Phone Care Team Providers Care Director Banking Name Role Phone Jere Calderon MD Primary Care Provider Reason for Visit * Reason Comments Med Refill Encounter Details Date Type Department Care Team (Late st Contact Info) Description 02/13/2020 Refill Feliberto [employer] [employer] [address] [place] [address] Bruce Guido MD Social History [...] on filedocumented in this encounter Care Teams Director Banking Relationship Specialty Start Date End Date Jere Calderon MD [address] [facility] [address] [place] [address] PCP - General Family Medicine 12/26/18 documented as of this encounter
--- OUTSIDE RECORDS SUMMARY | 2025-04-06 07:54 | XMS_ITS | Encounter Summary ---
Author Organization [place] [employer] [employer] Address [address] [facility] [facility] [address] [place] [address] Phone Care Team Providers Care Manager Package Name Role Phone Jere Calderon MD Primary Care Provider [phone] Reason for Visit * Reason Comments Med Refill Encounter Details Date Type Department Care Team (Late st Contact Info) Description 09/05/2020 Refill Feliberto [employer] [employer] [address] [place] [address] Bruce Guido MD Social History [...] on filedocumented in this encounter Care Teams Manager Package Relationship Specialty Start Date End Date Jere Calderon MD [address] [facility] [address] [place] [address] PCP - General Family Medicine 12/26/18 documented as of this encounter
--- OUTSIDE RECORDS SUMMARY | 2025-04-06 07:54 | XMS_ITS | Encounter Summary ---
Author Organization [facility] Address [address] [place] [address] Care Team Providers Care Mill Roll Rewinder Name Role Phone Maricarmen Meeks NP Primary Care Provider [phone] Encounter Details Date Type Department Care Team (Latest Contact Info) Description 02/01/2002 Outpatient Historical [facility] Raghu Solano MD [address] [place] [address] Old bucket tear med men (Primary Dx) Social History Tobacco Use Types Packs/Day Years Used Date Smoking Tobacco: Never Assessed Comments Unknown Sex and Gender Information Value Date Recorded Sex Assigned at Not on file Legal Sex Female 4:39 AM HOG FEEDER Gender Identity Not on file Sexual Orientation Not on file documented as of this encounter Plan of Treatment Not on file documented as of this encounter Visit Diagnoses Diagnosis Old bucket tear med men- Primary Old bucket handle tear of medial meniscus documented in this encounter Care Teams Mill Roll Rewinder Relationship Specialty Start Date End Date Maricarmen Meeks NP [address] [place] [address] PCP - General NURSE PRACTITIONER 01/27/17 documented as of this encounter
--- OUTSIDE RECORDS SUMMARY | 2025-04-06 07:54 | XMS_ITS | Encounter Summary ---
Author Organization [facility] Address [address]: [place] [address] Care Team Providers Care Activities Director Name Role Phone Maricarmen Meeks LOADER MAGAZINE GRINDER Primary Care Provider [phone] Encounter Details Date Type Department Care Team (Late st Contact Info) Description 10/06/2001 Outpatient Historical Raghu Solano MD [address] [place] [address] Social History Tobacco Use Types Packs/Day Years Used Date Smoking Tobacco: Never Assessed Comments Unknown Sex and Gender Information Value Date Recorded Sex Assigned at Not on file Legal Sex Female 4:39 AM CRAB CATCHER Gender Identity Not on file Sexual Orientation Not on file documented as of this encounter Plan of Treatment Not on file documented as of this encounter Visit Diagnoses Not on filedocumented in this encounter Care Teams Activities Director Relationship Specialty Start Date End Date Maricarmen Meeks NP [address] [place], [place] [address] PCP - General NURSE PRACTITIONER 01/27/17 documented as of this encounter
--- OUTSIDE RECORDS SUMMARY | 2025-04-06 07:54 | XMS_ITS | Encounter Summary ---
Author Organization [facility] Address [address] [place] [address] Care Team Providers Care Side Door Man Name Role Phone Maricarmen Meeks CUSTOMS APPRAISER Primary Care Provider [phone] Encounter Details Date Type Department Care Team (Latest Contact Info) Description 08/26/2003 Outpatient Historical [facility] Jang Dolores [address] [place] [address] Muna Almaraz MD [address] [place] [address] CALCULUS OF KIDNEY (Primary Dx) Social History Tobacco Use Types Packs/Day Years Used Date Smoking Tobacco: Never Assessed Comments Unknown Sex and Gender Information Value Date Recorded Sex Assigned at Not on file Legal Sex Female 4:39 AM PATIENT ADMITTING REPRESENTATIVE Gender Identity Not on file Sexual Orientation Not on file documented as of this encounter Plan of Treatment Not on file documented as of this encounter Visit Diagnoses Diagnosis Calculus of kidney- Primary documented in this encounter Care Teams Side Door Man Relationship Specialty Start Date End Date Maricarmen Meesk NP [address] [place] [address] PCP - General NURSE PRACTITIONER 01/27/17 documented as of this encounter
--- OUTSIDE RECORDS SUMMARY | 2025-04-06 07:54 | XMS_ITS | Clinical Summary ---
Author Organization [employer] Address [address] [facility] Attn: [place] [address] Care Team Providers Care Cyber Ops Planner Name Role Phone Maricarmen Meeks NP Primary Care Provider [phone]- [phone] Allergies Active Allergy Reactions Criticality Noted Date Comments Carisoprodol Hives High 11/15/2016 Medications methylPREDNISol one (MEDROL DOSPACK) 4 mg Tablets, Dose Pack Take as directed. 1 Package 0 7 Active fluticasone propionate (FLONASE) 50 mcg/spray [place], Suspension nasal inhaler Administer 2 Sprays in each nostril daily. 7 Active gabapentin (NEURONTIN) 400 mg capsule Take 400 mg by mouth 2 times daily . 7 Active FLUoxetine (PROzac) 20 mg tablet Take 20 mg by mouth daily. 7 Active amLODIPine (NORVASC) 5 mg tablet Take 1 Tablet (5 mg) by mouth daily. 30 Tablet 1 7 Active omega-3 fatty acids-fish oil 300-1,000 mg Capsule Take 1 Capsule by mouth daily. 7 Active HYDROcodone-madeleine taminophen (NORCO) 10-325 mg Tablet Take 1 Tablet by mouth every 4 hours as needed for Pain. Max Daily Amount: 6 Tablets 90 Tablet 0 7 Active liraglutide (VICTOZA) 0.6 mg/0.1 mL (18 mg/3 mL) Inject 1.2 mg by subcutaneous injection daily hanging flags decorator . 7 Active psyllium husk/aspartame (METAMUCIL FIBER SINGLES ORAL) Take by mouth daily hanging flags decorator . 7 Active oxyCODONE (ROXICODONE) 10 mg tablet Take 1 Tablet (10 mg) by mouth every 4 hours as needed for Pain. Max Daily Amount: 60 mg 90 Tablet 0 7 Active cyclobenzaprine (FLEXERIL) 5 mg Tablet Take 7.5 mg by mouth every 8 hours as needed for Spasm. 7 Active atorvastatin (LIPITOR) 40 mg tablet Take 1 Tablet (40 mg) by mouth late in the day. 30 Tablet 1 7 Active traZODone (DESYREL) 50 mg tablet Take 50 mg by mouth daily at bedtime. 7 Active Active Problems Problem Noted Date Diagnosed Date Dyslipidemia 01/26/2017 Essential hypertension 01/26/2017 Preoperative general physical examination 2016 Depression 01/26/2017 Type 2 diabetes mellitus wit h complication, without long-term current use of insulin 01/26/2017 Ex-smoker 01/26/2017 Overview (01/15/2021): Approximately 6 weeks Spinal stenosis of lumbar region 01/26/2017 Elevated serum creatinine 01/26/2017 Obesity (BMI 30.0-34.9) 01/26/2017 PRES (posterior reversible e ncephalopathy syndrome) secondary to LIVIER 11/15/2016 Left leg weakness 11/15/2016 Acute arterial ischemic stro ke, multifocal, posterior circulation 11/15/2016 Left hip pain 11/15/2016 Acute renal failure 11/15/2016 Resolved Problems Problem Noted Date Diagnosed Date Resolved Date Leucocytosis 11/15/2016 01/26/2017 Current smoker one PPD for 20 years 11/15/2016 01/26/2017 Immunizations Immunization Administration Dates Next Due (TDVAX)(7 YRS UP) TETANUS AN D DIPHTHERIA TOXOIDS, ADSORBED (2 LF OF TETANUS TOXOID AND 2 LF OF DIPHTHERIA TOXOID), 0.5ML (PF), IM 01/19/2008 Hepatitis A Vaccine 03/07/2002,08/15/2001 Family History Medical History Relation Name Comments Heart Disease Brother Raghu Hypertension Brother Raghu Stroke Brother Raghu Healthy Daughter Ford Cancer Father Heart Disease Father Heart Disease Mother Heart Disease Sister Vidhi Hypertension Sister Vidhi Healthy Son Dulce Relation Name Status Comments Brothsparkle Krishnamurthy (Age 67) Daughter Ford Alive Father (Age 84) Mother (Age 79) Sister Vidhi (Age 75) Son Dulce Alive Social History Tobacco Use Types Packs/Day Years Used Date Smoking Tobacco: Former Cigarettes Q uit: 11/19/2016 Smokeless Tobacco: Never Alcohol Use Standard Drinks/Week Comments No 0 (1 standard drink = 0.6 oz pur e alcohol) Comments Unknown Sex and Gender Information Value Date Recorded Sex Assigned at Not on file Legal Sex Female 6:17 AM ADMINISTRATIVE SUPPORT ASSISTANT Gender Identity Not on file Sexual Orientation Not on file Last Filed Vital Signs Vital Sign Reading Time Taken Comments Blood Pressure 160/80 06/17/2017 10:21 AM CDT Pulse 98 03/19/2017 10:30 AM CDT Temperature 36.7 C (98.1 F) 03/19/2017 10:30 AM CDT Respiratory Rate 16 03/19/2017 10:30 AM CDT Oxygen Saturation - - Inhaled Oxygen Concentration - - Weight 77.1 kg (170 lb) 06/17/2017 10:21 AM CDT Height 157.5 cm (5' 2 ) 06/17/2017 10:21 AM CDT Body Mass Index 31.09 06/17/2017 10:21 AM CDT Plan of Treatment Health Maintenance Due Date Last Done Comments DIABETES ANNUAL FOOT EXAM 1977 DIABETES ANNUAL RETINAL EXAM 1977 DIABETES MICROALBUMIN ANNUAL SCREEN 1977 PNEUMOCOCCAL VACCINE 50+ YEA RS (1 of 2 - PCV) 1978 BREAST CANCER SCREENING 1999 COLORECTAL SCREENING 2004 Colorectal Cancer Screening 2004 FIT-DNA Q 3 years 2004 FIT/FOBT Q 1 year 2004 Flex Sig/CT Colonography Q 5 years 2004 DTAP/TDAP/TD VACCINES (1 - Tdap) 01/20/2008 01/19/20 08 ZOSTER VACCINE (1 of 2) 2009 DIABETES HBA1C Q 6 MONTHS 09/17/20172016, 03/18/2017, 01/26/2017 LDL CHOLESTEROL ANNUAL 11/16/2017 11/16/2016 OSTEOPOROSIS SCREENING 2024 INFLUENZA VACCINE (#1) 2025 RSV VACCINE (60+ or ) (1 - 1-dose 75+ series) 2034 Medical Devices Implanted Type Area Vitreo Retinal Surgeon Device Identifier Shelf Expiration Date Model / Serial / Lot Tritanium 7mm X 23mm Posterior Lumbar Cage [id number] Implanted:Qty: 1 on 03/17/2017 by Kem Soriano MD Cage Spine Lumbar SHARITA- SPINE 10/12/2021 [id number] / / AYK& Tritanium 8mm X 23 Mm Posterior Lumbar Cage [id number] Implanted:Qty: 1 on 03/17/2017 by Kem Soriano MD Cage Spine Lumbar SHARITA- SPINE 05/30/2021 [id number] / / MAYUR Hemostatic Gelfoam Powder 1gm [id number] - Sna Implanted:Qty: 1 on 03/17/2017 by Kem Soriano MD Hemostatic N/A: Spine Lumbar PFIZER- PHARM 04/18/2019 [id number] / NA / [id number] Hemostatic Gelfoam Powder 1gm [id number] - Sna Implanted:Qty: 1 on 03/17/2017 by Kem Soriano MD Hemostatic N/A: Spine Lumbar PFIZER- PHARM 07/19/2019 [id number] / NA / [id number] Hemostatic Gelfoam Spng 12-7mm [id number] - Csc - Sna Implanted:Qty: 1 on 03/17/2017 by Kem Soriano MD Hemostatic N/A: Spine Lumbar PFIZER- PHARM 05/19/2019 [id number] / NA / [id number] Davey Xia3 Ti Miguel Rad 6x70mm [id number] - Sload [id number] Implanted:Qty: 2 on 03/17/2017 by Kem Soriano MD Davey Spine Lumbar SHARITA- SPINE [id number] / LOAD [id number] / Screw Xia3 Pa 7.0x50mm [id number] - Sload [id number] Implanted:Qty: 4 on 03/17/2017 by Kem Soriano MD Screw Spine Lumbar SHARITA- SPINE [id number] / LOAD [id number] / Screw Xia3 Pa 7.5x50mm [id number] - [id number] Implanted:Qty: 2 on 03/17/2017 by Kem Soriano MD Screw Spine Lumbar SHARITA- SPINE [id number] / [id number] / Bio Dbm Boat 5ml 37.5x5mm [id number] - [id number] Implanted:Qty: 1 on 03/17/2017 by Kem Soriano MD Spine Spine Lumbar SHARITA- SPINE 01/27/2020 [id number] / [id number] / [id number] Cecilia Xia3 [id number] - Sload [id number] Implanted:Qty: 6 on 03/17/2017 by Kem Soriano MD Spine Spine Lumbar SHARITA- SPINE [id number] / LOAD [id number] / Crsscnctr Xia3 43-54mm [id number] - Sload [id number] Implanted:Qty: 1 on 03/17/2017 by Kem Soriano MD Spine Spine Lumbar SHARITA- SPINE [id number] / LOAD [id number] / Procedures Procedure Name Priority Date/Time Associated Diagnosis Comments HEMOGLOBIN A1C Routine 03/18/2017 3:06 AM CDT LIPID PANEL Routine 11/16/2016 2:21 AM ADMINISTRATIVE SUPPORT ASSISTANT from Last 3 Months or Most Recently Relevant to Health Maintenance Results * HEMOGLOBIN A1C (03/18/2017 3:06 AM CDT) [facility] HEMOGLOBIN A1C 6.0 4.0 - 6.0 % 03/18/2017 12:47 PM CDT [facility] EST. AVG GLUCOSE, A1C 126 mg/dL 03/18/2017 12:47 PM CDT [facility] Blood Venipuncture / Unknown 03/18/2017 3:06 AM CDT 03/18/2017 3:32 AM CDT Narrative [facility] - 03/18/2017 12:47 PM CDT If not available from last three months. Test performed on [employer] instrumentation using HPLC methodology us Kem Soriano MD CHEMISTRY ORDERABLES Tiffanie l Result Performing Organization Address City/[facility]/ZIP Co de Phone Number [facility] CLIA# [id number] [address] [place] [address] [facility] CLIA # [id number] [address] [facility] [place] [address] * (ABNORMAL) LIPID PANEL (11/16/2016 2:21 AM ADMINISTRATIVE SUPPORT ASSISTANT) CHOLESTEROL 177 <200 mg/dL 11/16/2016 3:11 AM [facility] TRIGLYCERIDE 448(H) <150 mg/dL 11/16/2016 3:11 AM [facility] HDL 33(L) 40 - 59 mg/dL 11/16/2016 3:11 AM [facility] LDL CALCULATED 11/16/2016 3:11 AM [facility] Comment:Calculated LDL is no t accurate when the Triglyceride value exceeds 400. NON-HDL CHOLESTEROL 144(H) <130 mg/dL 11/16/2016 3:11 AM [facility] Blood Venipuncture / Unknown 11/16/2016 2:21 AM ADMINISTRATIVE SUPPORT ASSISTANT 11/16/2016 2:35 AM ADMINISTRATIVE SUPPORT ASSISTANT Narrative [facility] - 11/16/2016 3:11 AM ADMINISTRATIVE SUPPORT ASSISTANT Fasting TOTAL CHOLESTEROL mg/dL Desirable<200 Borderline [id number] High>=240 TRIGLYCERIDES mg/dL Normal<150 Borderline hobu224-568 Oqem791-126 Very high>=500 HDL CHOLESTEROL mg/dL Low<40 Hwobtf46-25 Desirable>=60 NON HDL CHOLESTEROL mg/dL Optimal<130 Near Gexjblm252-658 Borderline Pnzw332-607 Very High>=190 Calculated LDL mg/dL Optimal<100 Near Xbojsim805-668 Borderline Tbms899-976 Qhil056-821 Very High>=190 ATPIII Guidelines Reference Ranges for Lipid Panels (NCEP/AMA) Nagi Prabhakar MD CHEMISTRY ORDERABLES Final Resu lt Performing Organization Address City/[facility] Co de Phone Number [facility] CLIA# [id number] [address] [place] [address] [facility] CLIA # [id number] [address] [facility] [place] [address] from Last 3 Months or Most Recently Relevant to Health Maintenance Care Teams Cyber Ops Planner Relationship Specialty Start Date End Date Maricarmen Meeks NP [address] [place], [place] [address] PCP - General NURSE PRACTITIONER 01/27/17
--- OUTSIDE RECORDS SUMMARY | 2025-04-06 07:54 | XMS_ITS | Clinical Summary ---
Author Organization [facility] Address [address] [place] [address] Phone Care Team Providers Care Lithographic Proofer Apprentice Name Role Phone Maricarmen Meeks NP Primary Care Provider [phone]- [phone] Allergies Active Allergy Reactions Criticality Noted Date Comments Carisoprodol Hives High 11/15/2016 Medications traZODone (DESYREL) 50 mg tablet Take 50 mg by mouth daily at bedtime. Active gabapentin (NEURONTIN) 400 mg capsule Take 400 mg by mouth 2 times daily . Active amLODIPine (NORVASC) 5 mg tablet Take 1 Tablet (5 mg) by mouth daily. 30 Tablet 1 7 Active atorvastatin (LIPITOR) 40 mg tablet Take 1 Tablet (40 mg) by mouth late in the day. 30 Tablet 1 7 Active FLUoxetine (PROzac) 20 mg tablet Take 20 mg by mouth daily. Active cyclobenzaprine (FLEXERIL) 5 mg Tablet Take 7.5 mg by mouth every 8 hours as needed for Spasm. Active liraglutide (VICTOZA 2-FELIPE) 0.6 mg/0.1 mL (18 mg/3 mL) Inject 1.2 mg by subcutaneous injection daily check examiner . Active omega-3 fatty acids-fish oil 300-1,000 mg Capsule Take 1 Capsule by mouth daily. Active PSYLLIUM HUSK/ASPARTAME (METAMUCIL FIBER SINGLES ORAL) Take by mouth daily check examiner . Active fluticasone (FLONASE) 50 mcg/spray [place], Suspension Administer 2 Sprays in each nostril daily. Active oxyCODONE (ROXICODONE) 10 mg tablet Take 1 Tablet (10 mg) by mouth every 4 hours as needed for Pain. Max Daily Amount: 60 mg 90 Tablet 7 Active HYDROcodone-madeleine taminophen (NORCO) 10-325 mg Tablet Take 1 Tablet by mouth every 4 hours as needed for Pain. Max Daily Amount: 6 Tablets 90 Tablet 7 Active methylPREDNISol one (MEDROL DOSPACK) 4 mg Tablets, Dose Pack Take as directed. 1 Package 7 Active Active Problems Problem Noted Date Diagnosed Date Essential hypertension 01/26/2017 Dyslipidemia 01/26/2017 Type 2 diabetes mellitus wit h complication, without long-term current use of insulin 01/26/2017 Preoperative general physical examination 2016 Depression 01/26/2017 Ex-smoker 01/26/2017 Overview (01/26/2017): Approximately 6 weeks Spinal stenosis of lumbar region 01/26/2017 Elevated serum creatinine 01/26/2017 Obesity (BMI 30.0-34.9) 01/26/2017 PRES (posterior reversible e ncephalopathy syndrome) secondary to LIVIER 11/15/2016 Acute arterial ischemic stro ke, multifocal, posterior circulation 11/15/2016 Left leg weakness 11/15/2016 Left hip pain 11/15/2016 Acute renal [...] Healthy Son Dulce Relation Name Status Comments Brother Raghu (Age 67) Daughter Ford Alive Father (Age 84) Mother (Age 79) Sister Vidhi (Age 75) Son Dulce Alive Social History Tobacco Use Types Packs/Day Years Used Date Smoking Tobacco: Former Cigarettes 1 25 0 11/20/1991 - 11/19/2016 Smokeless Tobacco: Never Tobacco Cessation:Ready to Q uit: Yes; Counseling Given: Yes Alcohol Use Standard Drinks/Week Comments No 0 (1 standard drink = 0.6 oz pur e alcohol) Comments No Sex and Gender Information Value Date Recorded Sex Assigned at Not on file Legal Sex Female 4:39 AM FAMILY LIVING EDUCATOR Gender Identity Not on file Sexual Orientation Not on file Last Filed Vital Signs Vital Sign Reading Time Taken Comments Blood Pressure 160/80 06/17/2017 10:21 AM CDT Pulse 98 03/19/2017 10:30 AM CDT Temperature 36.7 C (98.1 F) 03/19/2017 10:30 AM CDT Respiratory Rate 16 03/19/2017 10:30 AM CDT Oxygen Saturation 97% 03/19/2017 10:30 AM CDT Inhaled Oxygen Concentration - - Weight 77.1 [...] 2) 2009 DIABETES HBA1C Q 6 MONTHS 09/17/2017 03/18/2017, 06/2017 LDL CHOLESTEROL ANNUAL 11/16/2017 11/16/2016 OSTEOPOROSIS SCREENING 2024 INFLUENZA VACCINE (#1) 2025 RSV VACCINE (60+ or ) (1 - 1-dose 75+ series) 2034 Medical Devices Implanted Type Area Timber Faller Device Identifier Shelf Expiration Date Model / Serial / Lot Tritanium 7mm X 23mm Posterior Lumbar Cage [id number] Implanted:Qty: 1 on 03/17/2017 by Kem Soriano MD at [facility] Cage Spine Lumbar SHARITA- SPINE 10/12/2021 [id number] / / AYK& Tritanium 8mm X 23 Mm Posterior Lumbar Cage [id number] Implanted:Qty: 1 on 03/17/2017 by Kem Soriano MD at [facility] Cage Spine Lumbar SHARITA- SPINE 05/30/2021 [id number] / / MAYUR Hemostatic Gelfoam Powder 1gm [id number] - Sna Implanted:Qty: 1 on 03/17/2017 by Kem Soriano MD at [facility] Hemostatic N/A: Spine Lumbar PFIZER- PHARM 04/18/2019 [id number] / NA / [id number] Hemostatic Gelfoam Spng 12-7mm [id number] - Csc - Sna Implanted:Qty: 1 on 03/17/2017 by Kem Soriano MD at [facility] Hemostatic N/A: Spine Lumbar PFIZER- PHARM 05/19/2019 [id number] / NA / [id number] Hemostatic Gelfoam Powder 1gm [id number] - Sna Implanted:Qty: 1 on 03/17/2017 by Kem Soriano MD at [facility] Hemostatic N/A: Spine Lumbar PFIZER- PHARM 07/19/2019 [id number] / NA / [id number] Davey Xia3 Ti Miguel Rad 6x70mm [id number] - Sload [id number] Implanted:Qty: 2 on 03/17/2017 by Kem Soriano MD at [facility] Davey Spine Lumbar SHARITA- SPINE [id number] / LOAD [id number] / Screw Xia3 Pa 7.0x50mm [id number] - Sload [id number] Implanted:Qty: 4 on 03/17/2017 by Kem Soriano MD at [facility] Screw Spine Lumbar SHARITA- SPINE [id number] / LOAD [id number] / Screw Xia3 Pa 7.5x50mm [id number] - [id number] Implanted:Qty: 2 on 03/17/2017 by Kem Soriano MD at [facility] Screw Spine Lumbar SHARITA- SPINE [id number] / [id number] / Cecilia Xia3 [id number] - Sload [id number] Implanted:Qty: 6 on 03/17/2017 by Kem Soriano MD at [facility] Spine Spine Lumbar SHARITA- SPINE [id number] / LOAD [id number] / Bio Dbm Boat 5ml 37.5x5mm [id number] - [id number] Implanted:Qty: 1 on 03/17/2017 by Kem Soriano MD at [facility] Spine Spine Lumbar SHARITA- SPINE 01/27/2020 [id number] / [id number] / [id number] Crsscnctr Xia3 43-54mm [id number] - Sload [id number] Implanted:Qty: 1 on 03/17/2017 by Kem Soriano MD at [facility] Spine Spine Lumbar SHARITA- SPINE [id number] / LOAD [id number] / Procedures Procedure Name Priority Date/Time Associated Diagnosis Comments HEMOGLOBIN A1C Routine 03/18/2017 3:06 AM CDT LIPID PANEL Routine 11/16/2016 2:21 AM FAMILY LIVING EDUCATOR from Last 3 Months or Most Recently Relevant to Health Maintenance Results * HEMOGLOBIN A1C (03/18/2017 3:06 AM CDT) HEMOGLOBIN A1C 6.0 4.0 - 6.0 % 03/18/2017 12:47 PM CDT [facility] EST. AVG GLUCOSE, A1C 126 mg/dL 03/18/2017 12:47 PM CDT [facility] Blood Venipuncture / Unknown 03/18/2017 3:06 AM CDT 03/18/2017 3:[address] [facility] - 03/18/2017 12:47 PM CDT Test performed on [email or web address] instrumentation using HPLC methodology us Kem Soriano MD CHEMISTRY ORDERABLES Tiffanie l Result Performing Organization Address [facility] Co de Phone Number [facility] CLIA# [id number] [address] [place] [address] * (ABNORMAL) LIPID PANEL (11/16/2016 2:21 AM FAMILY LIVING EDUCATOR) CHOLESTEROL 177 <200 mg/dL 11/16/2016 3:11 AM [facility] TRIGLYCERIDE 448(H) <150 mg/dL 11/16/2016 3:11 AM [facility] HDL 33(L) 40 - 59 mg/dL 11/16/2016 3:11 AM [facility] LDL CALCULATED <100 mg/dL 11/16/2016 3:11 AM [facility] Comment:Calculated LDL is no t accurate when the Triglyceride value exceeds 400. NON-HDL CHOLESTEROL 144(H) <130 mg/dL 11/16/2016 3:11 AM [facility] Blood Venipuncture / Unknown 11/16/2016 2:21 AM FAMILY LIVING EDUCATOR 11/16/2016 2:35 AM FAMILY LIVING EDUCATOR [facility] - 11/16/2016 3:11 AM FAMILY LIVING EDUCATOR TOTAL CHOLESTEROL mg/dL Desirable <200 Borderline high 200-239 High >=240 TRIGLYCERIDES mg/dL Normal <150 Borderline high 150-199 High 200-499 Very high >=500 HDL CHOLESTEROL mg/dL Low <40 Normal 40-59 Desirable >=60 NON HDL CHOLESTEROL mg/dL Optimal <130 Near Optimal 130-159 Borderline High 160-189 Very High >=190 Calculated LDL mg/dL Optimal <100 Near Optimal 100-129 Borderline High 130-159 High 160-189 Very High >=190 ATPIII Guidelines Reference Ranges for Lipid Panels (NCEP/AMA) us Nagi Prabhakar MD CHEMISTRY ORDERABLES Final Resu lt [facility] CLIA# [id number] [address] [place] [address] from Last 3 Months or Most Recently Relevant to Health Maintenance Insurance [facility] Advance Directives For more information, please contact: [phone] * Full Code (Latest Code Status on File) Date Activated Date Inactivated Comments 03/17/2017 8:25 PM 03/19/2017 4:03 PM * Full Code Date Activated Date Inactivated Comments 03/17/2017 12:54 PM 03/17/2017 8:25 PM * Full Code Date Activated Date Inactivated Comments 11/15/2016 3:59 PM 11/17/2016 5:42 PM Care Teams Lithographic Proofer Apprentice Relationship Specialty Start Date End Date Maricarmen Meeks NP [address] [place] [address] PCP - General NURSE PRACTITIONER 01/27/17
--- OUTSIDE RECORDS SUMMARY | 2025-04-06 07:54 | XMS_ITS | Clinical Summary ---
Author Organization [facility] Facility Address [address] [place] [address] Care Team Providers Care Tank Hoop Bender Name Role Phone Jere Calderon MD Primary Care Provider [phone] Allergies Active Allergy Reactions Criticality Noted Date Comments Carisoprodol Hives,Other (see comments) 017 Medications * This document contains information received from the source organization and may not represent a complete record from that organization. traZODone (DESYREL) 50 MG tablet Take 1 tablet by mouth at bed time Active FLUoxetine (PROZAC) 20 MG capsule Take 1 capsule by mouth 1 (one) time each day Active aspirin 325 MG tablet Take 1 tablet by mouth 1 (one) time each day Active fluticasone (FLONASE) 50 MCG/ACT nasal spray Administer 2 sprays into each nostril 1 (one) time each day Active amLODIPine (NORVASC) 10 MG tablet Take 1 tablet (10 mg total) by mouth 1 (one) time each day 30 tablet 11 9 Active gabapentin (NEURONTIN) 800 MG tablet Take by mouth 1 (one) time each day 9 Active cyclobenzaprine (FLEXERIL) 5 MG tablet Take 1 tablet (5 mg total) by mouth 3 (three) times a day if needed for muscle spasms for up to 10 days 30 tablet 9 Active Active Problems Problem Noted Date Diagnosed Date Dyslipidemia 01/26/2017 Essential hypertension 01/26/2017 Type 2 diabetes mellitus 01/26/2017 Acute nontraumatic kidney injury 11/15/2016 Posterior reversible encephalopathy syndrome Encounters Date Type Department Care Team Description 03/25/2025 Treatment [facility] [employer], [facility] [address] [place] [address] Daily Cardona MD End stage renal disease; Dependence on renal dialysis 03/19/2025 Orders Only [place] [employer], [facility] [address] [place] [address] Daily Cardona MD 02/25/[address] [place] [address] [employer], [facility] [address] [place] [address] Daily Cardona MD End stage renal disease; Dependence on renal dialysis 02/18/2025 Orders Only [place] [employer], [facility] [address] [place] [address] Daily Cardona MD 01/29/[address] [place] [address] [employer], [facility] [address] [place] [address] Daily Cardona MD End stage renal disease; Dependence on renal dialysis; Hypertensive chronic kidney disease with stage 5 chronic kidney disease or end stage renal disease 01/21/2025 Orders Only [place] [employer], [facility] [address] [place] [address] Daily Cardona MD from Last 3 Months Immunizations Immunization Administration Dates Next Due Hepatitis A 03/07/2002,08/15/2001 Td 01/19/2008 Family History Medical History Relation Comments Hypertension Child Kidney disease Child Stroke Child Cancer Father Heart disease Father Heart disease Mother Hypertension Mother Hypertension Sibling Stroke Sibling Relation Status Comments Child Father Mother Sibling Social History Tobacco Use Types Packs/Day Years [...] Sign Reading Time Taken Comments Blood Pressure 164/60 03/28/2019 9:53 AM CDT Pulse 80 03/28/2019 9:53 AM CDT Temperature - - Respiratory Rate - - Oxygen Saturation - - Inhaled Oxygen Concentration - - Weight 93.8 kg (206 lb 14.4 oz) 03/28/2019 9:53 AM CDT Height 157.5 cm (5' 2 ) 03/28/2019 9:53 AM CDT Body Mass Index 37.84 03/28/2019 9:53 AM CDT Plan of Treatment Health Maintenance Due Date Last Done Comments Breast Cancer Screening 1960 Hepatitis B Vaccine (1 of 5 - Risk Dialysis 4-dose series) 1979 12/18/2020, 11/27/2020, 10/30/2020, Additional history exists Colorectal Cancer Screening: Annual FOBT 2008 Colorectal Cancer Screening: Colonoscopy 2008 Colorectal Cancer Screening: Sigmoidoscopy 2008 Diabetes: Ophthalmology Exam 12/24/2018 Diabetes: Pedal Pulse Checked 12/24/2018 Diabetes: Sensory Foot Exam 12/24/2018 Diabetes: Visual Foot Exam 12/24/2018 Pneumococcal Vaccine: 50+ Ye ars (3 of 3 - PCV20 or PCV21) 06/12/2024 06/12/2019, 04/11/2019 Influenza Vaccine (#1) 2025 07/09/2024, 2022 Diabetes: Hemoglobin A1C 06/19/2025 025, 12/18/2024, 09/20/2024, Additional history exists Pneumococcal Vaccine: Peds ( 0 to 5 Years) and At-Risk Patients (6 to 49 Years) Discontinued 06/12/2019, 04/11/2019 Procedures Procedure Name Priority Date/Time Associated Diagnosis Comments IMMUNO CHEMISTRY Routine 03/19/2025 SPECIAL CHEMISTRY Routine 03/19/2025 CHEMISTRY Routine 03/19/2025 CHEMISTRY Routine 03/19/2025 HEMATOLOGY Routine 03/19/2025 URINE CLEARANCE Routine 02/18/2025 PD ADEQUACY Routine 02/18/2025 PDF CHEMISTRY Routine 02/18/2025 PD ADEQUACY Routine 02/18/2025 CHEMISTRY Routine 02/18/2025 PATIENT INFORMATION Routine 02/18/2025 PATIENT INFORMATION Routine 02/18/2025 HEMATOLOGY Routine 02/18/2025 PATIENT INFORMATION Routine 02/18/2025 CHEMISTRY Routine 01/21/2025 HEMATOLOGY Routine 01/21/2025 from Last 3 Months Results * SPECIAL CHEMISTRY (03/19/2025) Pathologist [facility] Hemoglobin A1C 5.6 4.8 - 5.9 % [email or web address] 03/19/2025 03/20/2025 9:1 2 AM CDT Narrative [facility] - 03/20/2025 Unless otherwise specified, test(s) performed at: [facility], [address] [place] [id number] AUDIT REVIEWER: Shayne Ram M.D. For any questions, please call customer service at FREQUENCY:MONTHLY Resulting Agency Comment Specimen source: Blood Daily Cardona MD LAB BLOOD BANK TEST ORDERABLE S Final Result [employer] [facility] See order comments or contact performing lab Unknown, [place] * (ABNORMAL) IMMUNO CHEMISTRY (03/19/2025) Pathologist [facility] Hepatitis C Antibody Reactive( A) Nonreactive [facility] Comment: Custom Exception HCV RNA Quantitative Real-Time PCR is recommended. The above test result was obtained using Siemens Centaur XP chemiluminescent method. Results obtained with different assay methods or kits cannot be used interchangeably. Reactive and Equivocal Hep C results are reported to the [facility] Department of Health as required in accordance with applicable state law. S/CO Ratio 10.17(H) 0.00 - 0.79 [facility] Comment: s/co ratio Interpretation Supplemental testing <0.80 Nonreactive No further testing required. 0.80-0.99 Equivocal HCV RNA Quantitative Real-Time PCR is recommended. 1.00->11.00 Reactive HCV RNA Quantitative Real-Time PCR is recommended to distinguish active from resolved cases. 03/19/2025 03/20/2025 9:4 8 AM CDT Narrative [facility] - 03/20/2025 Unless otherwise specified, test(s) performed at: [facility], [address] [place] [address] AUDIT REVIEWER: Shayne Ram M.D. For any questions, please call customer service at FREQUENCY:MONTHLY Resulting Agency Comment Specimen source: Serum us Daily Cardona MD LAB BLOOD ORDERABLES Final Re sult [email or web address] See order comments or contact performing lab Unknown, [place] * (ABNORMAL) HEMATOLOGY (03/19/2025) Only the most recent of3 resultswithin the time period is included. Neutrophils 76.2(H) 40.0 - 75.0 % [facility] Lymphocytes Relative 15.5(L) 19.0 - 48.0 % [facility] Monocytes 3.7 3.0 - 10.0 % [facility] Eosinophils Relative 2.4 0.0 - 7.0 % [facility] Basophils Relative 0.7 0.0 - 1.5 % [facility] RAVI 1.5 0.0 - 4.0 % [facility] WBC 15.04(H) 4.80 - 10.80 1000/mcL [facility] RBC 4.15(L) 4.20 - 5.40 mill/mcL [facility] Hematocrit 42.6 37.0 - 47.0 % [facility] MCV 102(H) 80 - 100 fl [facility] MCH 33.1(H) 27.0 - 31.0 pg [facility] MCHC 32.3 30.0 - 36.0 g/dL [facility] RDW 13.2 11.5 - 14.5 % [facility] Hemoglobin 13.8 12.0 - 16.0 g/dL [facility] Hemoglobin x 3 41.4 36.0 - 48.0 % [facility] Platelets 220 130 - 400 1000/mcL [facility] Retic Ct Pct 1.91 0.80 - 2.10 % [facility] Reticulocyte Hemoglobin 34.6(H) 25.4 - 31.8 pg [facility] 03/19/2025 03/20/2025 9:1 2 AM CDT Narrative [facility] - 03/20/2025 Unless otherwise specified, test(s) performed at: [facility], [address] [place], [place] [id number] AUDIT REVIEWER: Shayne Ram M.D. For any questions, please call customer service at FREQUENCY:MONTHLY Resulting Agency Comment Specimen source: Blood us Daily Cardona MD LAB BLOOD ORDERABLES Final Re sult Performing Organization Address [facility] de Phone Number [employer] See order comments or contact performing lab [facility], [place] * (ABNORMAL) [facility] (03/19/2025) Only the most recent of4 resultswithin the time period is included. PTH 257(H) 16 - 80 pg/mL [facility] 03/19/2025 03/20/2025 9:3 9 AM CDT Narrative [facility] - 03/20/2025 Unless otherwise specified, test(s) performed at: [facility], [address] [place] [id number] AUDIT REVIEWER: Shayne Ram M.D. For any questions, please call customer service at FREQUENCY:MONTHLY Resulting Agency Comment Specimen source: Plasma us Daily Cardona MD LAB BLOOD ORDERABLES Final Re sult Performing Organization Address City/[facility]/ZIP Co de Phone Number [facility] See order comments or contact performing lab Unknown, [place] * (ABNORMAL) URINE CLEARANCE (02/18/2025) Urea Nitrogen, Urine Timed 200 mg/dL [facility] Urea Nitrogen, Urine 24 Hr 0.3(L) 12.0 - 20.0 g/24 hr [facility] Urea Clear, Urine Norm 0.5(L) 64.0 - 99.0 mL/min [facility] Urea Clearance, Urine 0.4(L) 64.0 - 99.0 mL/min [facility] Urea Clear, Urine Norm Wkly 4 L/wk [facility] Creatinine, Urine Timed 164.3 mg/dL [facility] Creatinine, 24H Ur 0.2(L) 0.5 - 1.6 g/24 hr [facility] Creatinine Clear, Urine 1.6 mL/min [facility] Creat Clear, Urine Norm 1.8(L) 77.0 - 94.0 mL/min [facility] Creat Clear, Urine Wkly 16.1 L/wk [facility] 02/18/2025 02/19/2025 11: 04 AM CDT Narrative Resulting Agency Comment Specimen source: Urine us Daily Cardona MD LAB URINE ORDERABLES Final Re sult [email or web address] See order comments or contact performing lab Unknown, [place] * PDF CHEMISTRY (02/18/2025) Urea Nitrogen, PDF 24 Hr 2,931.3 mg/24 hr [facility] Urea Nitrogen, PDF Timed 35 mg/dL [facility] Urea Clearance, PD Fluid 4.7 mL/min [facility] Urea Clearance, PDF Norm 5.4 mL/min [facility] Urea Clear, Tot Norm Wkly 51 L/wk [facility] Urea Clear, PDF Norm Wkly 47 L/wk [facility] Creatinine, PDF Timed Uncor 4.9 mg/dL [facility] Creatinine, PDF Timed Cor 4.7 mg/dL [facility] Comment: Creatinine values have been corrected for glucose interference. [facility] glucose correction factor for creatinine is 0.0002. Creatinine, PDF 24 Hr 393.6 mg/24 hr [facility] Creatinine Clear, PDF 3.0 mL/min [facility] Creatinine Clear, PDF Norm 3.4 mL/min [facility] Creat Clear, PDF Norm Wkly 30 L/wk [facility] Creat Clear, Tot Wkly 46 L/wk [facility] Glucose, PDF Timed 966 mg/dL [facility] 02/18/2025 02/19/2025 11: 09 AM CDT Narrative Resulting Agency Comment Specimen source: PD Fluid us Daily Cardona MD LAB BODY FLUIDS AND STOOLS OR DERABLES Final Result Performing Organization Address City/[facility]/ZIP Co de Phone Number [facility] See order comments or contact performing lab Unknown, [place] * PD ADEQUACY (02/18/2025) Only the most recent of2 resultswithin the time period is included. Kt/V, Residual 0.14 [facility] Creat Clear, Urine Nor Wkly 18 L/wk [facility] 02/18/2025 02/19/2025 11: 04 AM CDT Narrative [facility] - 02/19/2025 Unless otherwise specified, test(s) performed at: [facility], [address] [place] [address] AUDIT REVIEWER: Shayne Ram M.D. For any questions, please call customer service at FREQUENCY:MONTHLY Resulting Agency Comment Specimen source: Urine us Daily Cardona MD LAB BODY FLUIDS AND STOOLS OR DERABLES Final Result Performing Organization Address [facility] Co de Phone Number [facility] See order comments or contact performing lab Unknown, [place] * PATIENT INFORMATION (02/18/2025) Only the most recent of3 resultswithin the time period is included. Urea Volume Distribution (Jerel) 28.2 L [facility] 02/18/2025 02/19/2025 11: 09 AM CDT Narrative [facility] - 02/19/2025 Unless otherwise specified, test(s) performed at: [facility], [address] [place] [id number] AUDIT REVIEWER: Shayne Ram M.D. For any questions, please call customer service at FREQUENCY:MONTHLY Resulting Agency Comment Specimen source: PD Fluid us Daily Cardona MD LAB BLOOD ORDERABLES Final Re sult [facility] See order comments or contact performing lab Unknown, [place] from Last 3 Months Insurance [facility] Medicare Care Teams Tank Hoop Bender Relationship Specialty Start Date End Date Jere Calderon MD [address] [facility] [address] [place] [id number] PCP - General Family Medicine 12/26/18
--- OUTSIDE RECORDS SUMMARY | 2025-04-06 07:54 | XMS_ITS | Encounter Summary ---
Author Organization [facility] Address [address] [place] [address] Care Team Providers Care Brim Plater Name Role Phone Maricarmen Meeks DATA PROCESSING AUDITOR Primary Care Provider [phone] Encounter Details Date Type Department Care Team (Latest Contact Info) Description 03/28/2019 Ancillary Orders [facility] Interventional Radiology [address] 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
--- OUTSIDE RECORDS SUMMARY | 2025-04-06 07:54 | XMS_ITS | Encounter Summary ---
Author Organization [place] [facility] [facility] Address [address] [place] [address] Phone Care Team Providers Care Billing Customer Service Representative Name Role Phone Jere Calderon MD Primary Care Provider [phone] Reason for Visit * Reason Comments Med Refill Encounter Details Date Type Department Care Team (Late st Contact Info) Description 12/15/2020 Refill [facility] [address] [place] [address] Bruce Guido MD Social History [...] on filedocumented in this encounter Care Teams Billing Customer Service Representative Relationship Specialty Start Date End Date Jere Calderon MD [address] [facility] [address] [place] [address] PCP - General Family Medicine 12/26/18 documented as of this encounter
--- OUTSIDE RECORDS SUMMARY | 2025-04-06 07:54 | XMS_ITS | Encounter Summary ---
Author Organization [place] [facility] Address [address] [facility] [address] [place] [address] Phone Care Team Providers Care Fuse Maker Name Role Phone Jere Calderon MD Primary Care Provider [phone] Reason for Visit * Reason Comments Med Refill Encounter Details Date Type Department Care Team (Late st Contact Info) Description 03/07/2021 Refill [facility] American Injury Attorney [facility] [address] [place] [address] Bruce Guido MD Social History [...] on filedocumented in this encounter Care Teams Fuse Maker Relationship Specialty Start Date End Date Jere Calderon MD [address] [facility] [address] [place] [address] PCP - General Family Medicine 12/26/18 documented as of this encounter
--- OUTSIDE RECORDS SUMMARY | 2025-04-06 07:54 | XMS_ITS | Encounter Summary ---
Author Organization [place] [facility] Address [address] [facility] [address] [place] [address] Phone Care Team Providers Care Nursing Tech Name Role Phone Jere Calderon MD Primary Care Provider [phone] Reason for Visit * Reason Comments Med Refill Encounter Details Date Type Department Care Team (Late st Contact Info) Description 09/17/2021 Refill [facility] [address] [place] [address] Bruce Guido MD Social History [...] on filedocumented in this encounter Care Teams Nursing Tech Relationship Specialty Start Date End Date Jere Calderon MD [address] [facility] [address] [place] [address] PCP - General Family Medicine 12/26/18 documented as of this encounter
--- OUTSIDE RECORDS SUMMARY | 2025-04-06 07:54 | XMS_ITS | Encounter Summary ---
Author Organization [facility] Address [address] [place] [address] Care Team Providers Care Finishing Wire Sawyer Name Role Phone Maricarmen Meeks NP Primary Care Provider [phone] Encounter Details Date Type Department Care Team (Latest Contact Info) Description 12/05/2001 Outpatient Historical [facility] Raghu Solano MD [address] [place] [address] Chondromalacia patellae (Primary Dx) Social History Tobacco Use Types Packs/Day Years Used Date Smoking Tobacco: Never Assessed Comments Unknown Sex and Gender Information Value Date Recorded Sex Assigned at Not on file Legal 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
--- OUTSIDE RECORDS SUMMARY | 2025-04-06 07:54 | XMS_ITS | Encounter Summary ---
Author Organization [facility] Address [address] [place] [address] Phone Care Team Providers Care Regional Sales Leader Name Role Phone Jere Calderon MD Primary Care Provider [phone] Reason for Visit * Reason Comments Med Refill Encounter Details Date Type Department Care Team (Late st Contact Info) Description 09/05/2024 Refill [facility] [address] [place] [address] Daily Cardona MD [address] [place] [address] Social History Tobacco Use Types Packs/Day Years [...] on filedocumented in this encounter Care Teams Regional Sales Leader Relationship Specialty Start Date End Date Jere Calderon MD [address] [email or web address] [address] [place] [address] PCP - General Family Medicine 12/26/18 documented as of this encounter
--- OUTSIDE RECORDS SUMMARY | 2025-04-06 07:54 | XMS_ITS | Encounter Summary ---
Author Organization [facility] Address [address] [place] [address] Care Team Providers Care Oracle E Business Developer Name Role Phone Maricarmen Meeks NP Primary Care Provider [phone] Encounter Details Date Type Department Care Team (Latest Contact Info) Description 04/16/2002 Outpatient Historical [facility] Senthil Quintana MD NO ADDRESS ON FILE Sprain cruciate lig knee (Primary Dx); [employer] NOS Social History Tobacco Use Types Packs/Day Years Used Date Smoking Tobacco: Never Assessed Comments Unknown Sex and Gender Information Value Date Recorded Sex Assigned at Not on file 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
--- NOTE | 2025-04-06 07:56 | XRR_ITS ---
PROCEDURE INFORMATION: Exam: XR Chest Exam date and time: 04/06/2025 8:15 AM Age: 64 years old Clinical indication: Cough and dyspnea; Additional info: Dyspnea/cough TECHNIQUE: Imaging protocol: Radiologic exam of the chest. Views: 1 view. COMPARISON: CR XR chest 2V* [id number] 03/29/2025 11:10 AM FINDINGS: Lungs: Unremarkable. No consolidation. Pleural spaces: Unremarkable. No pleural effusion. No pneumothorax. Heart/Mediastinum: Unremarkable. No cardiomegaly. Bones/joints: Unremarkable. XR/XR chest 1V portable [id number] IMPRESSION: No acute findings.
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
--- NOTE | 2025-04-06 08:32 | CTR_ITS ---
PROCEDURE INFORMATION: Exam: CT Abdomen And Pelvis Without Contrast Exam date and time: 04/06/2025 9:12 AM Age: 64 years old Clinical indication: Abdominal pain; Acute; Prior surgery; Surgery date: 6+ months; Surgery type: Pigtail catheter TECHNIQUE: Imaging protocol: Computed tomography of the abdomen and pelvis without contrast. Radiation optimization: All CT scans at this facility use at least one of these dose optimization techniques: automated exposure control; mA and/or kV adjustment per patient size (includes targeted exams where dose is matched to clinical indication); or iterative reconstruction. COMPARISON: CT kidney stone [id number] 02/25/2021 11:13 AM RADIATION DOSE METRICS: Total DLP (mGy-cm): 468.94 FINDINGS: Tubes, catheters and devices: There is a peritoneal dialysis catheter with its distal tip correlate in the pelvis. Diaphragm: Small hiatal hernia. Liver: Normal. No mass. Gallbladder and biliary ducts: The gallbladder is surgically absent. Pancreas: Normal. No ductal dilation. Spleen: Normal. No splenomegaly. Adrenal glands: Mild bilateral adrenal gland thickening. Kidneys and ureters: There is bilateral renal atrophy. No hydronephrosis. Nonobstructing bilateral nephrolithiasis. Left-sided renal cysts are present. Stomach and bowel: There is long segment colonic wall thickening involving mainly the entire colon with the exception of the sigmoid. Appendix: No evidence of appendicitis. Intraperitoneal space: Moderate volume ascites. There are scattered free air throughout the abdomen. There is left sided chronic omental infarct. Vasculature: Unremarkable. No abdominal aortic aneurysm. Lymph nodes: Unremarkable. No enlarged lymph nodes. Urinary bladder: Unremarkable as visualized. Reproductive: Unremarkable as visualized. Bones/joints: Postsurgical changes of posterior fusion of the lower lumbar spine. Soft tissues: There is some laxity of the pelvic floor muscles. CT/CT abdomen pelvis wo con [id number] IMPRESSION: 1. There is scattered free air throughout the abdomen. This may be either due to dialysis catheter placement. If dialysis catheter placement has not been recent then this may be due to ischemic colitis given that the majority of the colon appears thickened and demonstrates featureless morphology . 2. Moderate ascites related to peritoneal dialysis. COMMENTS: Consistent with the [employer]'s Incidental Findings Committee white paper (J Am Leonela Radiol 2018): Any incidental renal lesion less than 1 cm or classified as too small to characterize, or any incidental cystic renal lesion characterized as simple-appearing, is likely benign. No follow-up imaging is recommended for these lesions per consensus recommendations based on imaging criteria.
[2025-04-06 09:13] LABS: ABG PCO2 34.2 mmHg (35-45); ABG PH Result 7.37 (7.35-7.45); Alveolar-Arterial Oxygen Gradi 7.8 mmHg (5-10); Arterial Blood Gas Hematocrit 55.2 % (37-47); Blood Gas Allen Test Pos; Blood Gas Operator Identificat glc; Blood Gas Sample Site Radial, left; Blood Gas Sample Type Arterial; Carboxyhemoglobin 0.9 %THgb (0.4-20.1); Glucose Level-ABG 231.0 mg/dL (70-115); HCO3 ABG 19.6 mmol/L (22-26); Ionized Calcium Level - ABG 1.3 mmol/L (1.1-1.4); Methemoglobin 0.7 % (0.4-1.5); Oxygen Saturation ABG 81.6; PO2 ABG 47.1 mmHg (80.0-100.0); PO2 FiO2 Ratio Arterial Blood 224; Potassium Level - ABG 2.9 mmol/L (3.5-5.0); Sodium Level - ABG 135.0 mmol/L (131-143)
[2025-04-06] MEDS: cefTRIAXone 2,000 mg SDV 2000 MG IVP (09:51)
[2025-04-06 09:57] LABS: Hematocrit 47.5 % (36-47); Hemoglobin 15.20 g/dL (11.27-16.99); Mean Corpuscular HGB Conc 32.0 g/dL (30-55); Mean Corpuscular Hemoglobin 33.3 pg (27-33); Mean Corpuscular Volume 103.9 fl (85-98); Nucleated Red Blood Cells % 0.1 %; Platelet Count 232 10^3/cmm (157-399); Red Blood Count 4.57 10^6/uL (3.85-5.65); White Blood Count 26.78 10^3/uL (3.29-11.43)
[2025-04-06 10:13] LABS: Alanine Aminotransferase 26 U/L (0-33); Albumin Level 2.3 g/dL (3.5-5.2); Alkaline Phosphatase 106 U/L (35-105); Blood Urea Nitrogen 56 mg/dL (8-23); Calcium 10.2 mg/dL (8.5-10.5); Carbon Dioxide 15 mmol/L (22-29); Chloride 87 mmol/L (98-107); Globulin 4.5 g/dL (1.3-4.6); Glucose 205 mg/dL (65-115); Magnesium 1.8 mg/dL (1.7-2.3); Osmolality Calculated 295 mOsm/kg (285-295); Sodium 132 mmol/L (136-145); Total Protein 6.8 g/dL (6.6-8.7)
[2025-04-06 10:16] LABS: Anion Gap 32.7 (5-19); Aspartate Amino Transferase 20 U/L (0-32)
[2025-04-06 10:17] LABS: Potassium 2.7 mmol/L (3.5-5.1)
[2025-04-06 10:18] LABS: Creatinine Clr Calc Pharmacy 4.4473
[2025-04-06] MEDS: piperacillin-tazobactam 3.375 GM in sodium chloride 0.9% (plus) 50 ML IV (10:37)
[2025-04-06 10:43] LABS: Slide Review Slide Review Perform
[2025-04-06] MEDS: morphine 4 mg/mL SDV 1 mL 2 MG IVP ×2 (10:54→12:36)
[2025-04-06 10:59] LABS: Glucose Urine UA 1+ (Normal); Nitrate Urine Negative (Negative); Specific Gravity, Urine 1.009 (1.005-1.030)
[2025-04-06 11:02] LABS: Add Urine Microscopic? YES
[2025-04-06] MEDS: potassium chloride premix 100 ML 25 MEQ IV (11:20)
[2025-04-06 11:33] LABS: Lactic Sepsis W/Reflex 5.9 mmol/L (0.5-2.2)
[2025-04-06 12:53] LABS: Reflex Lactate Order REFLEX LACTIC ORDERD
[2025-04-06 14:22] LABS: Lactic Acid level (Lactate) 5.5 mmol/L (0.5-2.2)
== END 2025-04-06 15:12 | disposition admitted as inpatient to this hospital (09) ==
PROVIDERS: Emergency Provider Family Medicine; PCP Nurse Practitioner Family
DX: T80.29XA Infection following other infusion, transfusion and therapeutic injection, initial encounter (principal); K65.9 Peritonitis, unspecified; A41.9 Sepsis, unspecified organism; N30.90 Cystitis, unspecified without hematuria; E11.22 Type 2 diabetes mellitus with diabetic chronic kidney disease; I12.0 Hypertensive chronic kidney disease with stage 5 chronic kidney disease or end stage renal disease; N18.6 End stage renal disease; Z99.2 Dependence on renal dialysis; Z86.73 Personal history of transient ischemic attack (TIA), and cerebral infarction without residual deficits; F17.210 Nicotine dependence, cigarettes, uncomplicated; Z79.899 Other long term (current) drug therapy
CPT/HCPCS: 36415; 36600; 71045; 74176; 80051; 80053; 81001; 82330; 82805; 83605; 83735; 85025; 87040; 87086; 96365; 96375; 96376; 99285; J0696; J0780; J2270; J2543; J3480; J7030